=== PATIENT | female | born 1950 | race Caucasian/White ===

== ENCOUNTER 2023-08-22 16:56 | Outpatient (BNV) | payer MEDICARE, SELFPAY | END 2023-09-05 04:17 | PROVIDERS: Admitting Provider Psychiatry & Neurology Psychiatry; PCP Internal Medicine; Visit Provider Internal Medicine | DX: R94.31 Abnormal electrocardiogram [ECG] [EKG] (principal) | CPT/HCPCS: 93010 ==

== ENCOUNTER 2023-08-22 16:56 | Inpatient (IN) | payer MEDICARE, SELFPAY ==
--- NOTE | ~2023-08-22 | CT_ITS ---
EXAMINATION: CT HEAD WITHOUT CONTRAST CT CERVICAL SPINE WITHOUT CONTRAST CLINICAL INFORMATION: Trauma. Pain. COMPARISON: None available. TECHNIQUE: Contiguous axial imaging was performed through the head and cervical spine without intravenous administration of contrast. This CT examination was performed using dose optimization techniques as appropriate, variously including the following: *Automated exposure control *Adjustment of mA and/or kV according to patient size (this includes techniques or standardized protocols for targeted exams where dose is matched to indication/reason for exam; i.e. extremities or head) *Use of iterative reconstruction technique DLP: 1094 mGy-cm FINDINGS: There is cerebral volume loss with prominence of the lateral and the third ventricles. The cortical sulci are widened appropriately. The fourth ventricle and basal cisterns are normally outlined. There is mild bilateral periventricular and central white matter diminished attenuation. There is no acute territorial defect, hemorrhage or midline shift. The extra-axial spaces are unremarkable. Calvarium: Intact. Maxillofacial sinuses and mastoids: Clear as visualized. Cervical spine: Motion slightly limits evaluation. The alignment is within normal limits. There is diffuse ggjn-ea-hjpoxndg cervical disc degenerative change with loss of disc space, endplate change and posterior osteophytes associated with diffuse facet osteoarthritic hypertrophic change with multilevel mild spinal canal and multilevel mild neuroforaminal narrowing. There is no fracture. The soft tissues are unremarkable. The visualized upper lung viveros are clear. CT/CT head/brain wo IV con IMPRESSION: 1. No acute intracranial process seen. 2. Mild cerebral volume loss with chronic small vessel ischemic changes. 3. There is no acute cervical spine fracture or malalignment. There are degenerative disc changes and facet joint arthropathy throughout the cervical spine with multilevel mild spinal canal and neuroforaminal narrowing.
--- NOTE | ~2023-08-22 | CT_ITS ---
EXAMINATION: CT HEAD WITHOUT CONTRAST CT CERVICAL SPINE WITHOUT CONTRAST CLINICAL INFORMATION: Trauma. Pain. COMPARISON: None available. TECHNIQUE: Contiguous axial imaging was performed through the head and cervical spine without intravenous administration of contrast. This CT examination was performed using dose optimization techniques as appropriate, variously including the following: *Automated exposure control *Adjustment of mA and/or kV according to patient size (this includes techniques or standardized protocols for targeted exams where dose is matched to indication/reason for exam; i.e. extremities or head) *Use of iterative reconstruction technique DLP: 1094 mGy-cm FINDINGS: There is cerebral volume loss with prominence of the lateral and the third ventricles. The cortical sulci are widened appropriately. The fourth ventricle and basal cisterns are normally outlined. There is mild bilateral periventricular and central white matter diminished attenuation. There is no acute territorial defect, hemorrhage or midline shift. The extra-axial spaces are unremarkable. Calvarium: Intact. Maxillofacial sinuses and mastoids: Clear as visualized. Cervical spine: Motion slightly limits evaluation. The alignment is within normal limits. There is diffuse mtlo-fj-vbrskega cervical disc degenerative change with loss of disc space, endplate change and posterior osteophytes associated with diffuse facet osteoarthritic hypertrophic change with multilevel mild spinal canal and multilevel mild neuroforaminal narrowing. There is no fracture. The soft tissues are unremarkable. The visualized upper lung viveros are clear. CT/CT cervical spine wo IV con IMPRESSION: 1. No acute intracranial process seen. 2. Mild cerebral volume loss with chronic small vessel ischemic changes. 3. There is no acute cervical spine fracture or malalignment. There are degenerative disc changes and facet joint arthropathy throughout the cervical spine with multilevel mild spinal canal and neuroforaminal narrowing.
--- NOTE | ~2023-08-22 | XR_ITS ---
EXAMINATION: XR BILATERAL HIPS WITH AP PELVIS CLINICAL INFORMATION: Fall. Pain. COMPARISON: None available. TECHNIQUE: AP view of the pelvis and single views of each hip were obtained. FINDINGS: The bony structures are osteopenic. There is mild bilateral hip degenerative change with minimal loss of joint space and mild osteophyte formation more pronounced on the right. There is no fracture. There is mild lower lumbar disc degenerative change. The soft tissues are unremarkable. XR/XR hip BI w PEL1V IMPRESSION: Mild degenerative changes. No fracture or dislocation.
[2023-08-22 17:20] VITALS: BMI 27.2
[2023-08-22 17:21] VITALS: BP 156/68; PULSE 65; RESP 16; TEMP 36.1; O2SAT 96
--- NOTE | 2023-08-22 19:22 | PC.ADMIT ---
Madhavi was admitted to on 08/22/23 at 17:15 on a CV for the treatment of MDD. The precipitant of admission includes suicidal ideation related to the recent suicide of her only grandchild. She is alert and oriented to person, place, time, and situation. Skin check was completed by staff. She is utilizing a walker for ambulation. She was placed on 5 minute checks for safety.
[2023-08-22] MEDS: Acetaminophen 325 MG TABLET 650 MG PO (21:22)
[2023-08-22] MEDS: traZODone HCL 50 MG TABLET PO (23:55)
[2023-08-23] MEDS: traZODone HCL 50 MG TABLET PO ×2 (01:27→20:22)
[2023-08-23 08:41] VITALS: BP 107/53; PULSE 75; RESP 17; TEMP 36.5; O2SAT 99
[2023-08-23] MEDS: Atorvastatin Calcium 40 MG TABLET PO (08:45)
[2023-08-23] MEDS: Furosemide 40 MG TABLET PO (08:45)
[2023-08-23 08:59] LABS: Estimated Average Glucose 105 mg/dL; Hemoglobin A1c % 5.3 % (<6.0)
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
[2023-08-23 09:11] LABS: Alanine Aminotransferase 9 U/L (0-31); Alkaline Phosphatase 99 U/L (39-117); Anion Gap 14 (12-20); Aspartate Amino Transferase 14 U/L (5-31); Bilirubin Total 0.7 mg/dL (0.0-1.0); Blood Urea Nitrogen 22 mg/dL (9-16); Carbon Dioxide 28 mmol/L (22-29); Chloride 103 mmol/L (96-108); Cholesterol 190 mg/dL (<200); Creatinine Clr Calc Pharmacy 69.1; Estimated Glomerular Filt Rate > 60; Glucose Fasting 101 mg/dL (60-99); HDL Cholesterol 60 mg/dL (>40); LDL Cholesterol Calculated 109 mg/dL (<100); Potassium 4.9 mmol/L (3.3-5.1); Sodium 140 mmol/L (135-145); Total Protein 7.5 g/dL (6.5-8.0); Triglycerides 108 mg/dL (<150)
[2023-08-23 09:44] LABS: Folate 6.4 ng/mL (> or = 4.0); Vitamin B12 295 pg/mL (200-900)
--- NOTE | 2023-08-23 11:26 | P.CONHOSP_ITS ---
History of Present Illness Data of Consult Service Date: 08/23/23 Primary Care Provider: Niurka Villagran MD HPI Reason for consult: Admission H&P Pt is a 73-year-old female with a PMH significant for?HLD, chronic lower edema, and depression who is admitted [facility] psych unit for increasing depression with vague SI. Patient has apparently been particularly depressed after her only grandchild committed suicide the day before [place] last year. Medical consult for admission H&P. Patient seems distracted at time of interview. States she is unable to recall any any significant PMH other than taking ?something? for swelling in her lower legs and that she has issues with cataracts that cause her to be sensitive to bright lights. Also mentioned that she has chronically been unsteady on feet for the past few years and apparently has a history of falls at home. Denies any acute medical complaints. Patient does want to talk about the stressors in her life, including the suicide of her granddaughter, as well as other family members. Labs reviewed, grossly unremarkable. Review of Systems 2 Review of Systems: Chronic unsteadiness on feet History of falls Photophobia secondary to cataracts Chronic lower leg edema [facility] Medical History (Updated 08/24/23 @ 16:40 by JESÚS Hawthorne) HLD (hyperlipidemia) Cataracts, bilateral Social History Household Members: Other Household Members Other:: son ruthy Housing: House Do you presently have visiting nurse or other home services: Yes Patient Tobacco Use Status: Never used Tobacco Use of substances other than those prescribed or required for medical reasons: No Currently Displaying Signs/Symptoms of Drug Intoxication Withdrawal: No Have you been hit, kicked, punched, or otherwise hurt by someone within the past year? If so, by whom?: No Do you feel safe in your current relationship?: No Spiritual Healthcare Practices: unknown [facility] Healthcare Practices: unknown Advance Directives: No Advance Directives Information Provided: No Do you have thoughts of harming others: None Do you have a plan to hurt others: No Plan Recently lost weight without trying: No Nutrition Risks: No Nutritional Risk Patient : No : No Poor oral hygiene: No service: No Sexual orientation: Straight/Heterosexual Meds Allergies Allergy/AdvReac Type Severity Reaction Status Date / Time No Known Allergies Allergy Verified 08/22/23 17:55 Active Medications: Current Medications Acetaminophen (Acetaminophen 325 Mg Tablet) 650 mg PO Q6H PRN PRN Reason: Headache/Pain Mild Scale (1-3) Last Admin: 08/22/23 21:22 Dose: 650 mg Al Hydroxide/Mg Hydroxide (Magnesium Hydrox/Alum Hydrox 30 Ml Oral.Susp) 30 ml PO Q6H PRN PRN Reason: Heartburn/Nausea Atorvastatin Calcium (Atorvastatin Calcium 40 Mg Tablet) 40 mg PO DAILY [facility] Last Admin: 08/23/23 08:45 Dose: 40 mg Furosemide (Furosemide 40 Mg Tablet) 40 mg PO DAILY RAF; Protocol Last Admin: 08/23/23 08:45 Dose: 40 mg Magnesium Hydroxide (Milk Of Magnesia 30 Ml Oral.Susp) 30 ml PO DAILY PRN PRN Reason: Constipation Trazodone HCl (Trazodone Hcl 50 Mg Tablet) 50 mg PO BEDTIME PRN PRN Reason: Insomnia Last Admin: 08/23/23 01:27 Dose: 50 mg Home Medications Medication Instructions Recorded Confirmed Last Taken Type atorvastatin 40 mg tablet 40 mg PO DAILY 08/22/23 08/22/23 Unknown History divalproex 250 mg tablet,extended 750 mg PO BEDTIME 08/22/23 08/22/23 Unknown History release 24 hr furosemide 40 mg tablet (Lasix) 40 mg PO DAILY 08/22/23 08/22/23 Unknown History Physical Exam 2 Vital Signs and Narrative: Vital Signs: Last Vital Signs Temp 97.7 F 08/23/23 08:41 Pulse 75 08/23/23 08:41 Resp 17 08/23/23 08:41 BP 107/53 L 08/23/23 08:41 Pulse Ox 99 08/23/23 08:41 O2 Del Method Room Air 08/23/23 08:41 BMI result Body Mass Index 27.2 General: AOx3, no acute distress Resp: CTA bilaterally CVS: S1, S2, RRR, 2/6 murmur heard at right sternal border GI: +BS, NT, no distention Skin: Warm, dry Neuro: Cranial nerves II-XII grossly intact bilaterally. Motor grossly intact bilaterally Extremities: Non pitting bilateral lower leg edema Results Labs 08/23/23 08:03 Labs: Laboratory Results - last 24 hr 08/23/23 08:03 Anion Gap 14 Estim Creat Clear Calc 69.1 Estimated GFR > 60 Fasting Glucose 101 H Estimat Average Glucose 105 Hemoglobin A1c % 5.3 Calcium 10.0 Total Bilirubin 0.7 AST 14 ALT 9 Alkaline Phosphatase 99 Total Protein 7.5 Albumin 4.0 Triglycerides 108 Cholesterol 190 LDL Cholesterol, Calc 109 H HDL Cholesterol 60 Vitamin B12 295 Folate 6.4 TSH 0.80 Assessment and Plan (1) Medical clearance for psychiatric admission: Status: Acute Plan Pt is a 73-year-old female with a PMH significant for?HLD, chronic lower edema, and depression who is admitted [facility] psych unit for increasing depression with vague SI. Patient has apparently been particularly depressed after her only grandchild committed suicide the day before [place] last year. Medical consult for admission H&P. Mood disorder Plan as per psychiatry HLD Continue statin Chronic lower leg edema Continue home lasix Compression stockings as tolerated Elevate feet/legs while in bed, encourage ambulation as tolerated Otherwise pt has no acute medical complaints. Thank you for allowing us to participate in the care of this patient. Signing off at this time. Please re- consult if any acute complaints or issues arise.
[2023-08-23 18:00] VITALS: BP 121/58; PULSE 75; RESP 18; TEMP 36.6; O2SAT 100
[2023-08-23] MEDS: Divalproex Sodium Sprinkles 125 MG CAP.DR.SPR 750 MG PO (20:21)
[2023-08-23] MEDS: Mirtazapine 7.5 MG TABLET PO (20:22)
[2023-08-23] MEDS: Acetaminophen 325 MG TABLET 650 MG PO (20:27)
[2023-08-24 06:00] VITALS: BP 139/65; PULSE 75; RESP 18; TEMP 36.2; O2SAT 98
[2023-08-24] MEDS: Atorvastatin Calcium 40 MG TABLET PO (08:45)
[2023-08-24] MEDS: Furosemide 40 MG TABLET PO (08:45)
--- NOTE | 2023-08-24 17:49 | HO.PSYCHPN ---
Subjective Subjective Date of Service: 08/24/23 Reason For Visit: MDD Interim History: Patient reports I am mentally fine today. Reports feeling well. Denies pain. Reports mood is good. No SI. Visible on unit and ambulates with walker per staff. Review of Systems Review of Systems Chronic unsteadiness on feet History of falls Photophobia secondary to cataracts Chronic lower leg edema Yes all other systems are reviewed and are negative Mental Status Exam Mental Status Exam Patient Appearance: Appropriate (In hospital attire) Patient Orientation: Person and Situation Level of Consciousness: Awake and Appropriate Patient Behavior: Guarded and Passive Mood Description: Withdrawn Affect Description: Constricted Patient Cognition Impaired: Yes Ability to Follow Directions: Good Speech Pattern: Clear Diagnostics Vital Signs (24Hr): Vital Signs - 24 hr 08/23/23 18:00 08/24/23 06:00 Temperature 97.9 F 97.2 F Pulse Rate 75 75 Respiratory Rate 18 18 Blood Pressure 121/58 L 139/65 Pulse Oximetry 100 98 Oxygen Delivery Method Room Air Room Air BMI result Body Mass Index 27.2 Labs 08/23/23 08:03 Labs: Laboratory Results - last 48 hr 08/23/23 08:03 Sodium 140 Potassium 4.9 Chloride 103 Carbon Dioxide 28 Anion Gap 14 BUN 22 H Creatinine 0.76 Estim Creat Clear Calc 69.1 Estimated GFR > 60 Fasting Glucose 101 H Estimat Average Glucose 105 Hemoglobin A1c % 5.3 Calcium 10.0 Total Bilirubin 0.7 AST 14 ALT 9 Alkaline Phosphatase 99 Total Protein 7.5 Albumin 4.0 Triglycerides 108 Cholesterol 190 LDL Cholesterol, Calc 109 H HDL Cholesterol 60 Vitamin B12 295 Folate 6.4 TSH 0.80 Medications Medications Current Medications Acetaminophen (Acetaminophen 325 Mg Tablet) 650 mg PO Q6H PRN PRN Reason: Headache/Pain Mild Scale (1-3) Last Admin: 08/23/23 20:27 Dose: 650 mg Al Hydroxide/Mg Hydroxide (Magnesium Hydrox/Alum Hydrox 30 Ml Oral.Susp) 30 ml PO Q6H PRN PRN Reason: Heartburn/Nausea Atorvastatin Calcium (Atorvastatin Calcium 40 Mg Tablet) 40 mg PO DAILY [facility] Last Admin: 08/24/23 08:45 Dose: 40 mg Divalproex Sodium (Divalproex Sodium Sprinkles 125 Mg ) 750 mg PO BEDTIME [facility] Last Admin: 08/23/23 20:21 Dose: 750 mg Furosemide (Furosemide 40 Mg Tablet) 40 mg PO DAILY RAF; Protocol Last Admin: 08/24/23 08:45 Dose: 40 mg Magnesium Hydroxide (Milk Of Magnesia 30 Ml Oral.Susp) 30 ml PO DAILY PRN PRN Reason: Constipation Mirtazapine (Mirtazapine 7.5 Mg Tablet) 7.5 mg PO BEDTIME RAF Last Admin: 08/23/23 20:22 Dose: 7.5 mg Polyethyl Glycol/Propylene Glycol (Propylene Glycol/Peg 400 Gel Eye Drops 10ml) 2 drop EYE-BOTH ONCE PRN PRN Reason: Dry Eyes Trazodone HCl (Trazodone Hcl 50 Mg Tablet) 50 mg PO BEDTIME PRN PRN Reason: Insomnia Last Admin: 08/23/23 20:22 Dose: 50 mg Allergies Allergies Allergy/AdvReac Type Severity Reaction Status Date / Time No Known Allergies Allergy Verified 08/22/23 17:55 Assessment & Plan Assessment & Plan (1) Mood disorder: Status: Acute Code(s): F39 - Unspecified mood [affective] disorder (2) Depression: Status: Acute Code(s): F32.A - Depression, unspecified Plan (1) Mood disorder: Status: Acute Code(s): F39 - Unspecified mood [affective] disorder Plan The patient is a 73-year-old female with a past history of mood disorder on Depakote, with several members who has completed suicide. The patient had been depressed after she learned that her granddaughter herself after [place]. Since then she developed depressive symptoms with suicidal ideation, no evidence of manic symptoms at this moment. Plan 1. Gather collateral information. 2. Continue with Depakote we will change to Depakote Sprinkles because the patient has problems swallowing it. 3. Regular blood work and referral to the hospitalist. 4. Reassessment results. 5. 15 minute checks since the patient had been able to contract for safety in the facility. 6. Depakote level for Saturday. 7. Start Remeron 7.5 mg p.o. q.h.s. to target anxiety depression and insomnia. 08/24: Continue current management and treatment plan. Reason for continued inpatient stay Substantial Risk for: harm to self, inability to function and rapid decompensation Time Spent With Patient Time: Total time managing care of this patient today ____ minutes.
[2023-08-24 18:00] VITALS: BP 141/67; PULSE 92; RESP 18; TEMP 36.6; O2SAT 98
[2023-08-24] MEDS: Mirtazapine 7.5 MG TABLET PO (19:57)
[2023-08-24] MEDS: traZODone HCL 50 MG TABLET PO (19:58)
[2023-08-24] MEDS: Divalproex Sodium Sprinkles 125 MG CAP.DR.SPR 750 MG PO (19:58)
[2023-08-24] MEDS: Acetaminophen 325 MG TABLET 650 MG PO (20:07)
[2023-08-25 06:00] VITALS: BP 144/70; PULSE 72; RESP 18; TEMP 35.7; O2SAT 96
[2023-08-25] MEDS: Atorvastatin Calcium 40 MG TABLET PO (08:55)
[2023-08-25] MEDS: Furosemide 40 MG TABLET PO (08:55)
[2023-08-25] MEDS: Acetaminophen 325 MG TABLET 650 MG PO ×2 (11:31→20:35)
--- NOTE | 2023-08-25 16:54 | P.PNPSI_ITS ---
Subjective Subjective Date of Service: 08/25/23 Reason For Visit: MDD Interim History: Patient reports I am mentally fine today. Says her eyes are dry and she uses Systane eye drops and an oral supplement for eye health. Otherwise reports feeling well. Denies pain. Reports mood is good. No SI. Visible on unit and ambulates with walker per staff. Review of Systems Review of Systems Chronic unsteadiness on feet History of falls Photophobia secondary to cataracts Chronic lower leg edema Yes all other systems are reviewed and are negative Mental Status Exam Mental Status Exam Patient Appearance: Appropriate (In hospital attire) Patient Orientation: Person and Situation Level of Consciousness: Awake and Appropriate Patient Behavior: Guarded and Passive Mood Description: Withdrawn Affect Description: Constricted Patient Cognition Impaired: Yes Ability to Follow Directions: Good Speech Pattern: Clear Diagnostics Vital Signs (24Hr): Vital Signs - 24 hr 08/24/23 18:00 08/25/23 06:00 Temperature 97.8 F 96.2 F L Pulse Rate 92 72 Respiratory Rate 18 18 Blood Pressure 141/67 H 144/70 H Pulse Oximetry 98 96 Oxygen Delivery Method Room Air Room Air BMI result Body Mass Index 27.2 Labs 08/23/23 08:03 Medications Medications Current Medications Acetaminophen (Acetaminophen 325 Mg Tablet) 650 mg PO Q6H PRN PRN Reason: Headache/Pain Mild Scale (1-3) Last Admin: 08/25/23 11:31 Dose: 650 mg Al Hydroxide/Mg Hydroxide (Magnesium Hydrox/Alum Hydrox 30 Ml Oral.Susp) 30 ml PO Q6H PRN PRN Reason: Heartburn/Nausea Atorvastatin Calcium (Atorvastatin Calcium 40 Mg Tablet) 40 mg PO DAILY [facility] Last Admin: 08/25/23 08:55 Dose: 40 mg Divalproex Sodium (Divalproex Sodium Sprinkles 125 Mg ) 750 mg PO BEDTIME [facility] Last Admin: 08/24/23 19:58 Dose: 750 mg Furosemide (Furosemide 40 Mg Tablet) 40 mg PO DAILY [facility]; Protocol Last Admin: 08/25/23 08:55 Dose: 40 mg Magnesium Hydroxide (Milk Of Magnesia 30 Ml Oral.Susp) 30 ml PO DAILY PRN PRN Reason: Constipation Mirtazapine (Mirtazapine 7.5 Mg Tablet) 7.5 mg PO BEDTIME [facility] Last Admin: 08/24/23 19:57 Dose: 7.5 mg Polyethyl Glycol/Propylene Glycol (Propylene Glycol/Peg 400 Gel Eye Drops 10ml) 2 drop EYE-BOTH BID PRN PRN Reason: Dry Eyes Trazodone HCl (Trazodone Hcl 50 Mg Tablet) 50 mg PO BEDTIME PRN PRN Reason: Insomnia Last Admin: 08/24/23 19:58 Dose: 50 mg Allergies Allergies Allergy/AdvReac Type Severity Reaction Status Date / Time No Known Allergies Allergy Verified 08/22/23 17:55 Assessment & Plan Assessment & Plan (1) Mood disorder: Status: Acute Code(s): F39 - Unspecified mood [affective] disorder (2) Depression: Status: Acute Code(s): F32.A - Depression, unspecified Plan (1) Mood disorder: Status: Acute Code(s): F39 - Unspecified mood [affective] disorder Plan The patient is a 73-year-old female with a past history of mood disorder on Depakote, with several members who has completed suicide. The patient had been depressed after she learned that her granddaughter herself after [place]. Since then she developed depressive symptoms with suicidal ideation, no evidence of manic symptoms at this moment. Plan 1. Gather collateral information. 2. Continue with Depakote we will change to Depakote Sprinkles because the patient has problems swallowing it. 3. Regular blood work and referral to the hospitalist. 4. Reassessment results. 5. 15 minute checks since the patient had been able to contract for safety in the facility. 6. Depakote level for Saturday. 7. Start Remeron 7.5 mg p.o. q.h.s. to target anxiety depression and insomnia. 08/24: Continue current management and treatment plan. 08/25: Continue current management and treatment plan. Reason for continued inpatient stay Substantial Risk for: inability to function and rapid decompensation Time Spent With Patient Time: Total time managing care of this patient today ____ minutes.
[2023-08-25 18:00] VITALS: BP 115/52; PULSE 81; RESP 18; TEMP 36.9; O2SAT 94
[2023-08-25] MEDS: Mirtazapine 7.5 MG TABLET PO (20:34)
[2023-08-25] MEDS: Divalproex Sodium Sprinkles 125 MG CAP.DR.SPR 750 MG PO (20:34)
[2023-08-25] MEDS: traZODone HCL 50 MG TABLET PO ×2 (20:35→21:42)
[2023-08-26 06:00] VITALS: BP 123/51; PULSE 81; RESP 18; TEMP 2.9; TEMP 37.3; O2SAT 96
[2023-08-26] MEDS: Furosemide 40 MG TABLET PO (08:21)
[2023-08-26] MEDS: Atorvastatin Calcium 40 MG TABLET PO (08:21)
[2023-08-26 08:24] LABS: Valproate 40.9 mcg/mL (50.0-100.0)
--- NOTE | 2023-08-26 14:21 | HO.PSYCHPN ---
Subjective Subjective Date of Service: 08/26/23 Reason For Visit: MDD Subjective Notes: Conditional Voluntary Interim History: The nursing staff reported the patient complained of knee pain 03/07 with no relief with Tylenol. She has been eating well and sleeping well 7 hours. Her Depakote level of today was 40.9. On interview the patient denies active suicidal ideation but still she looks dysphoric. We discussed her Depakote level and she agreed to increased up to a 1000 mg p.o. q.h.s. and we will recheck her levels on August 30. Mental Status Exam Mental Status Exam Patient Appearance: Appropriate Patient Orientation: Person and Situation Level of Consciousness: Awake and Appropriate Patient Behavior: Guarded and Passive Mood Description: Withdrawn Affect Description: Constricted Patient Cognition Impaired: Yes Ability to Follow Directions: Good Speech Pattern: Clear Hallucinations: None Delusions: Ideas of Reference Thought Process: Distracted and Slowed Thinking Thought Content: positive for [place] and positive for Poverty of Content Judgement: Fair Diagnostics Vital Signs (24Hr): Vital Signs - 24 hr 08/25/23 18:00 08/26/23 06:00 Temperature 98.4 F 37.3 F L Pulse Rate 81 81 Respiratory Rate 18 18 Blood Pressure 115/52 L 123/51 L Pulse Oximetry 94 96 Oxygen Delivery Method Room Air Room Air BMI result Body Mass Index 27.2 Labs 08/23/23 08:03 Labs: Laboratory Results - last 48 hr 08/26/23 07:58 Valproic Acid 40.9 L Medications Medications Current Medications Acetaminophen (Acetaminophen 325 Mg Tablet) 650 mg PO Q6H PRN PRN Reason: Headache/Pain Mild Scale (1-3) Last Admin: 08/25/23 20:35 Dose: 650 mg Al Hydroxide/Mg Hydroxide (Magnesium Hydrox/Alum Hydrox 30 Ml Oral.Susp) 30 ml PO Q6H PRN PRN Reason: Heartburn/Nausea Atorvastatin Calcium (Atorvastatin Calcium 40 Mg Tablet) 40 mg PO DAILY [facility] Last Admin: 08/26/23 08:21 Dose: 40 mg Divalproex Sodium (Divalproex Sodium Sprinkles 125 Mg Cap.DrStanSpr) 1,000 mg PO BEDTIME [facility] Furosemide (Furosemide 40 Mg Tablet) 40 mg PO DAILY [facility]; Protocol Last Admin: 08/26/23 08:21 Dose: 40 mg Magnesium Hydroxide (Milk Of Magnesia 30 Ml Oral.Susp) 30 ml PO DAILY PRN PRN Reason: Constipation Mirtazapine (Mirtazapine 7.5 Mg Tablet) 7.5 mg PO BEDTIME [facility] Last Admin: 08/25/23 20:34 Dose: 7.5 mg Polyethyl Glycol/Propylene Glycol (Propylene Glycol/Peg 400 Gel Eye Drops 10ml) 2 drop EYE-BOTH BID PRN PRN Reason: Dry Eyes Trazodone HCl (Trazodone Hcl 50 Mg Tablet) 50 mg PO BEDTIME PRN PRN Reason: Insomnia Last Admin: 08/25/23 21:42 Dose: 50 mg Allergies Allergies Allergy/AdvReac Type Severity Reaction Status Date / Time No Known Allergies Allergy Verified 08/22/23 17:55 Assessment & Plan Assessment & Plan (1) Mood disorder: Status: Acute Code(s): F39 - Unspecified mood [affective] disorder (2) Depression: Status: Acute Code(s): F32.A - Depression, unspecified Plan (1) Mood disorder: Status: Acute Code(s): F39 - Unspecified mood [affective] disorder Plan The patient is a 73-year-old female with a past history of mood disorder on Depakote, with several members who has completed suicide. The patient had been depressed after she learned that her granddaughter herself after [place]. Since then she developed depressive symptoms with suicidal ideation, no evidence of manic symptoms at this moment. Plan 1. Gather collateral information. 2. Continue with Depakote we will change to Depakote Sprinkles because the patient has problems swallowing it. 3. Regular blood work and referral to the hospitalist. 4. Reassessment results. 5. 15 minute checks since the patient had been able to contract for safety in the facility. 6. Depakote level for Saturday. Her level was 40.9. We are increasing Depakote up to 1000 mg at night. 7. Start Remeron 7.5 mg p.o. q.h.s. to target anxiety depression and insomnia on admission.. Reason for continued inpatient stay Substantial Risk for: inability to function, rapid decompensation and med/psych decompensation Time Spent With Patient Time: Total time managing care of this patient today __20__ minutes.
[2023-08-26 18:00] VITALS: BP 154/67; PULSE 81; RESP 18; TEMP 36.4; O2SAT 95
[2023-08-26] MEDS: Divalproex Sodium Sprinkles 125 MG CAP.DR.SPR 1000 MG PO (21:02)
[2023-08-26] MEDS: Mirtazapine 7.5 MG TABLET PO (21:02)
[2023-08-26] MEDS: Acetaminophen 325 MG TABLET 650 MG PO (21:03)
[2023-08-26] MEDS: traZODone HCL 50 MG TABLET PO (21:03)
[2023-08-26] MEDS: Propylene Glycol/PEG 400 Gel Eye Drops 10ML 2 DROP EYE-BOTH (21:25)
[2023-08-26] MEDS: Magnesium Hydrox/Alum Hydrox 30 ML ORAL.SUSP PO (21:51)
[2023-08-27 06:00] VITALS: BP 152/70; PULSE 80; RESP 16; TEMP 36.7; O2SAT 98
[2023-08-27] MEDS: Acetaminophen 325 MG TABLET 650 MG PO ×3 (06:09→21:31)
[2023-08-27] MEDS: Furosemide 40 MG TABLET PO (12:03)
[2023-08-27] MEDS: Atorvastatin Calcium 40 MG TABLET PO (12:03)
--- NOTE | 2023-08-27 12:32 | HO.PSYCHPN ---
Subjective Subjective Date of Service: 08/27/23 Reason For Visit: MDD Subjective Notes: Conditional Voluntary Healthcare Proxy: Yes Interim History: The nursing staff reported the patient has been attention seeking, she slept 7 hours and she had been restless at times. She needed p.r.n. medications in the evening. On interview the patient looks confused, redirectable no over-sedation. Mental Status Exam Mental Status Exam Patient Appearance: Appropriate Patient Orientation: Person Level of Consciousness: Awake and Restless Patient Behavior: Guarded and Passive Mood Description: Withdrawn Affect Description: Constricted Patient Cognition Impaired: Yes Ability to Follow Directions: Fair Speech Pattern: Clear Hallucinations: None Delusions: Ideas of Reference Thought Process: Illogical and Distracted Thought Content: positive for [place] and positive for Poverty of Content Judgement: Poor Diagnostics Vital Signs (24Hr): Vital Signs - 24 hr 08/26/23 18:00 Temperature 97.5 F Pulse Rate 81 Respiratory Rate 18 Blood Pressure 154/67 H Pulse Oximetry 95 Oxygen Delivery Method Room Air BMI result Body Mass Index 27.2 Labs 08/23/23 08:03 Labs: Laboratory Results - last 48 hr 08/26/23 07:58 Valproic Acid 40.9 L Medications Medications Current Medications Acetaminophen (Acetaminophen 325 Mg Tablet) 650 mg PO Q6H PRN PRN Reason: Headache/Pain Mild Scale (1-3) Last Admin: 08/27/23 06:09 Dose: 650 mg Al Hydroxide/Mg Hydroxide (Magnesium Hydrox/Alum Hydrox 30 Ml Oral.Susp) 30 ml PO Q6H PRN PRN Reason: Heartburn/Nausea Last Admin: 08/26/23 21:51 Dose: 30 ml Atorvastatin Calcium (Atorvastatin Calcium 40 Mg Tablet) 40 mg PO DAILY [facility] Last Admin: 08/27/23 12:03 Dose: 40 mg Divalproex Sodium (Divalproex Sodium Sprinkles 125 Mg ) 1,000 mg PO BEDTIME [facility] Last Admin: 08/26/23 21:02 Dose: 1,000 mg Furosemide (Furosemide 40 Mg Tablet) 40 mg PO DAILY [facility]; Protocol Last Admin: 08/27/23 12:03 Dose: 40 mg Magnesium Hydroxide (Milk Of Magnesia 30 Ml Oral.Susp) 30 ml PO DAILY PRN PRN Reason: Constipation Mirtazapine (Mirtazapine 7.5 Mg Tablet) 7.5 mg PO BEDTIME [facility] Last Admin: 08/26/23 21:02 Dose: 7.5 mg Polyethyl Glycol/Propylene Glycol (Propylene Glycol/Peg 400 Gel Eye Drops 10ml) 2 drop EYE-BOTH BID PRN PRN Reason: Dry Eyes Last Admin: 08/26/23 21:25 Dose: 2 drop Trazodone HCl (Trazodone Hcl 50 Mg Tablet) 50 mg PO BEDTIME PRN PRN Reason: Insomnia Last Admin: 08/26/23 21:03 Dose: 50 mg Allergies Allergies Allergy/AdvReac Type Severity Reaction Status Date / Time No Known Allergies Allergy Verified 08/22/23 17:55 Assessment & Plan Assessment & Plan (1) Mood disorder: Status: Acute Code(s): F39 - Unspecified mood [affective] disorder (2) Depression: Status: Acute Code(s): F32.A - Depression, unspecified Plan (1) Mood disorder: Status: Acute Code(s): F39 - Unspecified mood [affective] disorder Plan The patient is a 73-year-old female with a past history of mood disorder on Depakote, with several members who has completed suicide. The patient had been depressed after she learned that her granddaughter herself after [place]. Since then she developed depressive symptoms with suicidal ideation, no evidence of manic symptoms at this moment. Plan 1. Gather collateral information. 2. Continue with Depakote we will change to Depakote Sprinkles because the patient has problems swallowing it. 3. Regular blood work and referral to the hospitalist. 4. Reassessment results. 5. 15 minute checks since the patient had been able to contract for safety in the facility. 6. Depakote level for Saturday. Her level was 40.9. We are increasing Depakote up to 1000 mg at night. 7. Start Remeron 7.5 mg p.o. q.h.s. to target anxiety depression and insomnia on admission.. Reason for continued inpatient stay Substantial Risk for: inability to function, rapid decompensation and med/psych decompensation Time Spent With Patient Time: Total time managing care of this patient today __20__ minutes.
[2023-08-27 20:10] VITALS: BP 125/59; PULSE 84; RESP 16; TEMP 36.2; O2SAT 97
[2023-08-27] MEDS: Divalproex Sodium Sprinkles 125 MG CAP.DR.SPR 1000 MG PO (20:58)
[2023-08-27] MEDS: traZODone HCL 50 MG TABLET PO (20:58)
[2023-08-27] MEDS: Mirtazapine 7.5 MG TABLET PO (20:58)
[2023-08-28 06:00] VITALS: BP 130/61; PULSE 87; RESP 16; TEMP 37; O2SAT 96
[2023-08-28] MEDS: Furosemide 40 MG TABLET PO (09:55)
[2023-08-28] MEDS: Atorvastatin Calcium 40 MG TABLET PO (09:55)
--- NOTE | 2023-08-28 13:08 | P.PNPSI_ITS ---
Subjective Subjective Date of Service: 08/28/23 Reason For Visit: MDD Subjective Notes: Conditional Voluntary Interim History: The nursing staff reported the patient slept 8 hours, she took her medications and she reported that she was feeling depressed since her granddaughter committed suicide. She looks a little attention seeking but easily redirectable. The psychotherapist social worker reported that we could not contact her family yet. On interview the patient denies new symptoms looks internally preoccupied at times. Mental Status Exam Mental Status Exam Patient Appearance: Appropriate Patient Orientation: Person Level of Consciousness: Awake Patient Behavior: Guarded Mood Description: Withdrawn Affect Description: Constricted Patient Cognition Impaired: Yes Ability to Follow Directions: Good Speech Pattern: Clear Hallucinations: None Delusions: Ideas of Reference Thought Process: Distracted and Slowed Thinking Thought Content: positive for [place] and positive for Poverty of Content Judgement: Fair Diagnostics Vital Signs (24Hr): Vital Signs - 24 hr 08/27/23 20:10 08/28/23 06:00 Temperature 97.2 F 98.6 F Pulse Rate 84 87 Respiratory Rate 16 16 Blood Pressure 125/59 L 130/61 Pulse Oximetry 97 96 Oxygen Delivery Method Room Air Room Air BMI result Body Mass Index 27.2 Labs 08/23/23 08:03 Medications Medications Current Medications Acetaminophen (Acetaminophen 325 Mg Tablet) 650 mg PO Q6H PRN PRN Reason: Headache/Pain Mild Scale (1-3) Last Admin: 08/27/23 21:31 Dose: 650 mg Al Hydroxide/Mg Hydroxide (Magnesium Hydrox/Alum Hydrox 30 Ml Oral.Susp) 30 ml PO Q6H PRN PRN Reason: Heartburn/Nausea Last Admin: 08/26/23 21:51 Dose: 30 ml Atorvastatin Calcium (Atorvastatin Calcium 40 Mg Tablet) 40 mg PO DAILY [facility] Last Admin: 08/28/23 09:55 Dose: 40 mg Divalproex Sodium (Divalproex Sodium Sprinkles 125 Mg ) 1,000 mg PO BEDTIME [facility] Last Admin: 08/27/23 20:58 Dose: 1,000 mg Furosemide (Furosemide 40 Mg Tablet) 40 mg PO DAILY [facility]; Protocol Last Admin: 08/28/23 09:55 Dose: 40 mg Magnesium Hydroxide (Milk Of Magnesia 30 Ml Oral.Susp) 30 ml PO DAILY PRN PRN Reason: Constipation Mirtazapine (Mirtazapine 7.5 Mg Tablet) 7.5 mg PO BEDTIME [facility] Last Admin: 08/27/23 20:58 Dose: 7.5 mg Polyethyl Glycol/Propylene Glycol (Propylene Glycol/Peg 400 Gel Eye Drops 10ml) 2 drop EYE-BOTH BID PRN PRN Reason: Dry Eyes Last Admin: 08/26/23 21:25 Dose: 2 drop Trazodone HCl (Trazodone Hcl 50 Mg Tablet) 50 mg PO BEDTIME PRN PRN Reason: Insomnia Last Admin: 08/27/23 20:58 Dose: 50 mg Allergies Allergies Allergy/AdvReac Type Severity Reaction Status Date / Time No Known Allergies Allergy Verified 08/22/23 17:55 Assessment & Plan Assessment & Plan (1) Mood disorder: Status: Acute Code(s): F39 - Unspecified mood [affective] disorder (2) Depression: Status: Acute Code(s): F32.A - Depression, unspecified Plan (1) Mood disorder: Status: Acute Code(s): F39 - Unspecified mood [affective] disorder Plan The patient is a 73-year-old female with a past history of mood disorder on Depakote, with several members who has completed suicide. The patient had been depressed after she learned that her granddaughter herself after [place]. Since then she developed depressive symptoms with suicidal ideation, no evidence of manic symptoms at this moment. Plan 1. Gather collateral information. 2. Continue with Depakote we will change to Depakote Sprinkles because the patient has problems swallowing it. 3. Regular blood work and referral to the hospitalist. 4. Reassessment results. 5. 15 minute checks since the patient had been able to contract for safety in the facility. 6. Depakote level for Saturday. Her level was 40.9. We are increasing Depakote up to 1000 mg at night. 7. Start Remeron 7.5 mg p.o. q.h.s. to target anxiety depression and insomnia on admission.. Reason for continued inpatient stay Substantial Risk for: inability to function, rapid decompensation and med/psych decompensation Time Spent With Patient Time: Total time managing care of this patient today __20__ minutes.
--- NOTE | 2023-08-28 16:15 | HO.WOUND ---
Wound Consult: Initial 73yr old? F admitted to [facility] on to the Behavioral Health Unit - See progress notes and H&P for detailed history.? Wound consult placed for Left Lower Leg skin tear.? Patient agreeable to assessment and photo documentation.? Pt reports she is unsure how the wound occurred. She does not recall hitting her ankle - however she reports she has had cellulitis in the past and has had wound development related to cellultits. The lower leg is noted for hemosiderin staining pt reports she frequently has lower leg swelling and has been instructed by her doctors to elevate her lower legs. The foam silicone adhesive does not appear to be irritating her skin - she does not appear to have fragile tissue prone to skin tears at the time of my assessment. Given she is on the behavioral health unit and gauze wrap use is not encouraged Foam dressing is appropriate. Wound bed cleansed with NS pat dry. Skin prep applied to periwound and small cut to size piece of xeroform applied as patient reports she did not want just the foam dressing in place - she preferred a ointment. We discussed xeroform and she was agreeable to its application. Topical recommendations below - no followup needed by inpt wound care nurse - should wound worsen please place new consult. Recommendations: 1. Left Medial Ankle - Cleanse with normal saline, pat dry. ?Apply double layer Xeroform secure with foam dressing. Change Daily.
[2023-08-28] MEDS: Acetaminophen 325 MG TABLET 650 MG PO ×2 (16:17→22:20)
[2023-08-28 18:00] VITALS: BP 127/66; PULSE 75; RESP 16; TEMP 36.9; O2SAT 97
[2023-08-28] MEDS: Divalproex Sodium Sprinkles 125 MG CAP.DR.SPR 1000 MG PO (19:45)
[2023-08-28] MEDS: Mirtazapine 7.5 MG TABLET PO (19:46)
[2023-08-28] MEDS: traZODone HCL 50 MG TABLET PO ×2 (19:57→22:23)
[2023-08-28] MEDS: Propylene Glycol/PEG 400 Gel Eye Drops 10ML 2 DROP EYE-BOTH (22:40)
[2023-08-29 07:00] VITALS: BMI 27.6
[2023-08-29 08:00] VITALS: BP 124/60; PULSE 78; RESP 18; TEMP 36.8; O2SAT 98
[2023-08-29] MEDS: Furosemide 40 MG TABLET PO (08:24)
[2023-08-29] MEDS: Atorvastatin Calcium 40 MG TABLET PO (08:24)
[2023-08-29] MEDS: Acetaminophen 325 MG TABLET 650 MG PO ×2 (08:29→20:26)
--- NOTE | 2023-08-29 16:04 | P.PNPSI_ITS ---
Subjective Subjective Date of Service: 08/29/23 Reason For Visit: MDD Subjective Notes: Conditional Voluntary Interim History: The nursing staff reported the patient was seen by the wound nurse and she has now dressings on her injuries. She has been cheerful and taken talkative with peers. The occupational therapist reported that she likes attention in groups. On interview the patient denies active suicidal ideation and she agreed to have Depakote level for Saturday. Mental Status Exam Mental Status Exam Patient Appearance: Appropriate Patient Orientation: Person and Situation Level of Consciousness: Awake and Appropriate Patient Behavior: Guarded and Passive Mood Description: Withdrawn Affect Description: Constricted Patient Cognition Impaired: Yes Ability to Follow Directions: Good Speech Pattern: Clear Hallucinations: None Delusions: Not Present Thought Process: Distracted and Slowed Thinking Thought Content: positive for [place] and positive for Poverty of Content Judgement: Poor Diagnostics Vital Signs (24Hr): Vital Signs - 24 hr 08/28/23 18:00 08/29/23 08:00 Temperature 98.4 F 98.2 F Pulse Rate 75 78 Respiratory Rate 16 18 Blood Pressure 127/66 124/60 Pulse Oximetry 97 98 Oxygen Delivery Method Room Air Room Air BMI result Body Mass Index 27.6 Labs 08/23/23 08:03 Medications Medications Current Medications Acetaminophen (Acetaminophen 325 Mg Tablet) 650 mg PO Q6H PRN PRN Reason: Headache/Pain Mild Scale (1-3) Last Admin: 08/29/23 08:29 Dose: 650 mg Al Hydroxide/Mg Hydroxide (Magnesium Hydrox/Alum Hydrox 30 Ml Oral.Susp) 30 ml PO Q6H PRN PRN Reason: Heartburn/Nausea Last Admin: 08/26/23 21:51 Dose: 30 ml Atorvastatin Calcium (Atorvastatin Calcium 40 Mg Tablet) 40 mg PO DAILY [facility] Last Admin: 08/29/23 08:24 Dose: 40 mg Divalproex Sodium (Divalproex Sodium Sprinkles 125 Mg ) 1,000 mg PO BEDTIME [facility] Last Admin: 08/28/23 19:45 Dose: 1,000 mg Furosemide (Furosemide 40 Mg Tablet) 40 mg PO DAILY [facility]; Protocol Last Admin: 08/29/23 08:24 Dose: 40 mg Magnesium Hydroxide (Milk Of Magnesia 30 Ml Oral.Susp) 30 ml PO DAILY PRN PRN Reason: Constipation Mirtazapine (Mirtazapine 7.5 Mg Tablet) 7.5 mg PO BEDTIME [facility] Last Admin: 08/28/23 19:46 Dose: 7.5 mg Polyethyl Glycol/Propylene Glycol (Propylene Glycol/Peg 400 Gel Eye Drops 10ml) 2 drop EYE-BOTH BID PRN PRN Reason: Dry Eyes Last Admin: 08/28/23 22:40 Dose: 2 drop Trazodone HCl (Trazodone Hcl 50 Mg Tablet) 50 mg PO BEDTIME PRN PRN Reason: Insomnia Last Admin: 08/28/23 22:23 Dose: 50 mg Allergies Allergies Allergy/AdvReac Type Severity Reaction Status Date / Time No Known Allergies Allergy Verified 08/22/23 17:55 Assessment & Plan Assessment & Plan (1) Mood disorder: Status: Acute Code(s): F39 - Unspecified mood [affective] disorder (2) Depression: Status: Acute Code(s): F32.A - Depression, unspecified Plan (1) Mood disorder: Status: Acute Code(s): F39 - Unspecified mood [affective] disorder Plan The patient is a 73-year-old female with a past history of mood disorder on Depakote, with several members who has completed suicide. The patient had been depressed after she learned that her granddaughter herself after [place]. Since then she developed depressive symptoms with suicidal ideation, no evidence of manic symptoms at this moment. Plan 1. Gather collateral information. 2. Continue with Depakote we will change to Depakote Sprinkles because the patient has problems swallowing it. 3. Regular blood work and referral to the hospitalist. 4. Reassessment results. 5. 15 minute checks since the patient had been able to contract for safety in the facility. 6. Depakote level for Saturday. Her level was 40.9. We are increasing Depakote up to 1000 mg at night. 7. Start Remeron 7.5 mg p.o. q.h.s. to target anxiety depression and insomnia on admission.. Reason for continued inpatient stay Substantial Risk for: inability to function, rapid decompensation and med/psych decompensation Time Spent With Patient Time: Total time managing care of this patient today _20__ minutes.
[2023-08-29 18:00] VITALS: BP 130/59; PULSE 77; RESP 18; TEMP 36.6; O2SAT 98
[2023-08-29] MEDS: traZODone HCL 50 MG TABLET PO (20:19)
[2023-08-29] MEDS: Divalproex Sodium Sprinkles 125 MG CAP.DR.SPR 1000 MG PO (20:20)
[2023-08-29] MEDS: Mirtazapine 7.5 MG TABLET PO (20:20)
[2023-08-30 08:00] VITALS: BP 134/60; PULSE 73; RESP 16; TEMP 36.6; O2SAT 97
[2023-08-30 08:11] LABS: Valproate 57.2 mcg/mL (50.0-100.0)
[2023-08-30] MEDS: Atorvastatin Calcium 40 MG TABLET PO (08:16)
[2023-08-30] MEDS: Furosemide 40 MG TABLET PO (08:16)
--- NOTE | 2023-08-30 11:18 | P.PNPSI_ITS ---
Subjective Subjective Reason For Visit: MDD Diagnostics Vital Signs (24Hr): Vital Signs - 24 hr 08/29/23 18:00 08/30/23 08:00 Temperature 98 F 98 F Pulse Rate 77 73 Respiratory Rate 18 16 Blood Pressure 130/59 L 134/60 Pulse Oximetry 98 97 Oxygen Delivery Method Room Air Room Air BMI result Body Mass Index 27.6 Labs 08/23/23 08:03 Labs: Laboratory Results - last 48 hr 08/30/23 07:45 Valproic Acid 57.2 Medications Medications Current Medications Acetaminophen (Acetaminophen 325 Mg Tablet) 650 mg PO Q6H PRN PRN Reason: Headache/Pain Mild Scale (1-3) Last Admin: 08/29/23 20:26 Dose: 650 mg Al Hydroxide/Mg Hydroxide (Magnesium Hydrox/Alum Hydrox 30 Ml Oral.Susp) 30 ml PO Q6H PRN PRN Reason: Heartburn/Nausea Last Admin: 08/26/23 21:51 Dose: 30 ml Atorvastatin Calcium (Atorvastatin Calcium 40 Mg Tablet) 40 mg PO DAILY [facility] Last Admin: 08/30/23 08:16 Dose: 40 mg Divalproex Sodium (Divalproex Sodium Sprinkles 125 Mg Cap.) 1,000 mg PO BEDTIME [facility] Last Admin: 08/29/23 20:20 Dose: 1,000 mg Furosemide (Furosemide 40 Mg Tablet) 40 mg PO DAILY [facility]; Protocol Last Admin: 08/30/23 08:16 Dose: 40 mg Magnesium Hydroxide (Milk Of Magnesia 30 Ml Oral.Susp) 30 ml PO DAILY PRN PRN Reason: Constipation Mirtazapine (Mirtazapine 7.5 Mg Tablet) 7.5 mg PO BEDTIME [facility] Last Admin: 08/29/23 20:20 Dose: 7.5 mg Polyethyl Glycol/Propylene Glycol (Propylene Glycol/Peg 400 Gel Eye Drops 10ml) 2 drop EYE-BOTH BID PRN PRN Reason: Dry Eyes Last Admin: 08/28/23 22:40 Dose: 2 drop Trazodone HCl (Trazodone Hcl 50 Mg Tablet) 50 mg PO BEDTIME PRN PRN Reason: Insomnia Last Admin: 08/29/23 20:19 Dose: 50 mg Allergies Allergies Allergy/AdvReac Type Severity Reaction Status Date / Time No Known Allergies Allergy Verified 08/22/23 17:55 Assessment & Plan Assessment & Plan (1) Mood disorder: Status: Acute Code(s): F39 - Unspecified mood [affective] disorder (2) Depression: Status: Acute Code(s): F32.A - Depression, unspecified Plan (1) Mood disorder: Status: Acute Code(s): F39 - Unspecified mood [affective] disorder Plan The patient is a 73-year-old female with a past history of mood disorder on Depakote, with several members who has completed suicide. The patient had been depressed after she learned that her granddaughter herself after [place]. Since then she developed depressive symptoms with suicidal ideation, no evidence of manic symptoms at this moment. Plan 1. Gather collateral information. 2. Continue with Depakote we will change to Depakote Sprinkles because the patient has problems swallowing it. 3. Regular blood work and referral to the hospitalist. 4. Reassessment results. 5. 15 minute checks since the patient had been able to contract for safety in the facility. 6. Depakote level for Saturday. Her level was 40.9. We are increasing Depakote up to 1000 mg at night. 7. Start Remeron 7.5 mg p.o. q.h.s. to target anxiety depression and insomnia on admission.. Time Spent With Patient Time: Total time managing care of this patient today ____ minutes.
[2023-08-30] MEDS: Acetaminophen 325 MG TABLET 650 MG PO ×2 (13:28→20:07)
--- NOTE | 2023-08-30 14:00 | P.PNPSI_ITS ---
Subjective Subjective Date of Service: 08/30/23 Reason For Visit: MDD Interim History: The nursing staff reported the patient was seen by the wound nurse and she has now dressings on her injuries. left ankle skin tear healing well. She has been cheerful and talkative with peers. The occupational therapist reported that she likes attention in groups. On interview the patient denies active suicidal ideation. She denies feeling depressed. Medication Compliance: Yes Side effects from medications: No Attending Groups: Yes Review of Systems Acute medical concerns: No Medical Review of Systems: unchanged Review of Systems Review of Systems Chronic unsteadiness on feet History of falls Photophobia secondary to cataracts Chronic lower leg edema Yes all other systems are reviewed and are negative Mental Status Exam Mental Status Exam Patient Appearance: Appropriate Patient Orientation: Person and Situation Level of Consciousness: Awake and Appropriate Patient Behavior: Appropriate, Guarded and Passive Mood Description: Withdrawn Affect Description: Constricted Patient Cognition Impaired: Yes Ability to Follow Directions: Good Speech Pattern: Clear Thought Process: Goal Oriented Thought Content: positive for Goal Oriented Judgement: Fair Diagnostics Vital Signs (24Hr): Vital Signs - 24 hr 08/29/23 18:00 08/30/23 08:00 Temperature 98 F 98 F Pulse Rate 77 73 Respiratory Rate 18 16 Blood Pressure 130/59 L 134/60 Pulse Oximetry 98 97 Oxygen Delivery Method Room Air Room Air BMI result Body Mass Index 27.6 Labs 08/23/23 08:03 Labs: Laboratory Results - last 48 hr 08/30/23 07:45 Valproic Acid 57.2 Medications Medications Current Medications Acetaminophen (Acetaminophen 325 Mg Tablet) 650 mg PO Q6H PRN PRN Reason: Headache/Pain Mild Scale (1-3) Last Admin: 08/30/23 13:28 Dose: 650 mg Al Hydroxide/Mg Hydroxide (Magnesium Hydrox/Alum Hydrox 30 Ml Oral.Susp) 30 ml PO Q6H PRN PRN Reason: Heartburn/Nausea Last Admin: 08/26/23 21:51 Dose: 30 ml Atorvastatin Calcium (Atorvastatin Calcium 40 Mg Tablet) 40 mg PO DAILY [facility] Last Admin: 08/30/23 08:16 Dose: 40 mg Divalproex Sodium (Divalproex Sodium Sprinkles 125 Mg ) 1,000 mg PO BEDTIME [facility] Last Admin: 08/29/23 20:20 Dose: 1,000 mg Furosemide (Furosemide 40 Mg Tablet) 40 mg PO DAILY [facility]; Protocol Last Admin: 08/30/23 08:16 Dose: 40 mg Magnesium Hydroxide (Milk Of Magnesia 30 Ml Oral.Susp) 30 ml PO DAILY PRN PRN Reason: Constipation Mirtazapine (Mirtazapine 7.5 Mg Tablet) 7.5 mg PO BEDTIME [facility] Last Admin: 08/29/23 20:20 Dose: 7.5 mg Polyethyl Glycol/Propylene Glycol (Propylene Glycol/Peg 400 Gel Eye Drops 10ml) 2 drop EYE-BOTH BID PRN PRN Reason: Dry Eyes Last Admin: 08/28/23 22:40 Dose: 2 drop Trazodone HCl (Trazodone Hcl 50 Mg Tablet) 50 mg PO BEDTIME PRN PRN Reason: Insomnia Last Admin: 08/29/23 20:19 Dose: 50 mg Allergies Allergies Allergy/AdvReac Type Severity Reaction Status Date / Time No Known Allergies Allergy Verified 08/22/23 17:55 Assessment & Plan Assessment & Plan (1) Mood disorder: Status: Acute Code(s): F39 - Unspecified mood [affective] disorder (2) Depression: Status: Acute Code(s): F32.A - Depression, unspecified Plan (1) Mood disorder: Status: Acute Code(s): F39 - Unspecified mood [affective] disorder Plan The patient is a 73-year-old female with a past history of mood disorder on Depakote, with several members who has completed suicide. The patient had been depressed after she learned that her granddaughter herself after [place]. Since then she developed depressive symptoms with suicidal ideation, no evidence of manic symptoms at this moment. Plan 1. Gather collateral information. 2. Continue with Depakote we will change to Depakote Sprinkles because the patient has problems swallowing it. 3. Regular blood work and referral to the hospitalist. 4. Reassessment results. 5. 15 minute checks since the patient had been able to contract for safety in the facility. 6. Depakote level for Saturday. Her level was 40.9. We are increasing Depakote up to 1000 mg at night. 7. Start Remeron 7.5 mg p.o. q.h.s. to target anxiety depression and insomnia on admission. 08/30/23 continue tx plan Reason for continued inpatient stay Substantial Risk for: harm to self and inability to function Time Spent With Patient Time: Total time managing care of this patient today ____ minutes.
[2023-08-30 18:00] VITALS: BP 143/62; PULSE 72; RESP 16; TEMP 36.4; O2SAT 96
[2023-08-30] MEDS: Mirtazapine 7.5 MG TABLET PO (20:08)
[2023-08-30] MEDS: traZODone HCL 50 MG TABLET PO (20:09)
[2023-08-30] MEDS: Divalproex Sodium Sprinkles 125 MG CAP.DR.SPR 1000 MG PO (20:09)
[2023-08-31] MEDS: Acetaminophen 325 MG TABLET 650 MG PO ×2 (06:33→20:32)
[2023-08-31 08:00] VITALS: BP 139/62; PULSE 67; RESP 17; TEMP 36.3; O2SAT 97
[2023-08-31] MEDS: Furosemide 40 MG TABLET PO (09:28)
[2023-08-31] MEDS: Atorvastatin Calcium 40 MG TABLET PO (09:28)
--- NOTE | 2023-08-31 10:53 | P.PNPSI_ITS ---
Subjective Subjective Date of Service: 08/31/23 Reason For Visit: MDD Interim History: met with patient. Discussed with Nursing. In the day area working on a painting project. Reported being in the hospital because she said she wanted to kill herself. Talked about the of her grandchild around the holiday. By suicide. Feeling extreme guilt that being unable to attend the . Was very clear she did not want to kill herself. Sleep has been okay. Appetite okay. Hopeful for a conference call next week with family in treatment team and disposition planning Medication Compliance: Yes Side effects from medications: No Attending Groups: Yes Review of Systems Acute medical concerns: No Review of Systems Review of Systems nothing acute Mental Status Exam Mental Status Exam Narrative: pleasant. Engaged. Hospital clothing. Fair hygiene. Utilizes a walker. Participating in our project. Affect is restricted but outside of grief, denies depression. No SI. No HI. No agitation or psychosis. Insight and judgment fair Diagnostics Vital Signs (24Hr): Vital Signs - 24 hr 08/30/23 18:00 08/31/23 08:00 Temperature 97.5 F 97.3 F Pulse Rate 72 67 Respiratory Rate 16 17 Blood Pressure 143/62 H 139/62 Pulse Oximetry 96 97 Oxygen Delivery Method Room Air Room Air BMI result Body Mass Index 27.6 Labs 08/23/23 08:03 Labs: Laboratory Results - last 48 hr 08/30/23 07:45 Valproic Acid 57.2 Medications Medications Current Medications Acetaminophen (Acetaminophen 325 Mg Tablet) 650 mg PO Q6H PRN PRN Reason: Headache/Pain Mild Scale (1-3) Last Admin: 08/31/23 06:33 Dose: 650 mg Al Hydroxide/Mg Hydroxide (Magnesium Hydrox/Alum Hydrox 30 Ml Oral.Susp) 30 ml PO Q6H PRN PRN Reason: Heartburn/Nausea Last Admin: 08/26/23 21:51 Dose: 30 ml Atorvastatin Calcium (Atorvastatin Calcium 40 Mg Tablet) 40 mg PO DAILY [facility] Last Admin: 08/31/23 09:28 Dose: 40 mg Divalproex Sodium (Divalproex Sodium Sprinkles 125 Mg ) 1,000 mg PO BEDTIME [facility] Last Admin: 08/30/23 20:09 Dose: 1,000 mg Furosemide (Furosemide 40 Mg Tablet) 40 mg PO DAILY [facility]; Protocol Last Admin: 08/31/23 09:28 Dose: 40 mg Magnesium Hydroxide (Milk Of Magnesia 30 Ml Oral.Susp) 30 ml PO DAILY PRN PRN Reason: Constipation Mirtazapine (Mirtazapine 7.5 Mg Tablet) 7.5 mg PO BEDTIME [facility] Last Admin: 08/30/23 20:08 Dose: 7.5 mg Polyethyl Glycol/Propylene Glycol (Propylene Glycol/Peg 400 Gel Eye Drops 10ml) 2 drop EYE-BOTH BID PRN PRN Reason: Dry Eyes Last Admin: 08/28/23 22:40 Dose: 2 drop Trazodone HCl (Trazodone Hcl 50 Mg Tablet) 50 mg PO BEDTIME PRN PRN Reason: Insomnia Last Admin: 08/30/23 20:09 Dose: 50 mg Allergies Allergies Allergy/AdvReac Type Severity Reaction Status Date / Time No Known Allergies Allergy Verified 08/22/23 17:55 Assessment & Plan Assessment & Plan (1) Mood disorder: Status: Acute Code(s): F39 - Unspecified mood [affective] disorder (2) Depression: Status: Acute Code(s): F32.A - Depression, unspecified Plan (1) Mood disorder: Status: Acute Code(s): F39 - Unspecified mood [affective] disorder Plan The patient is a 73-year-old female with a past history of mood disorder on Depakote, with several members who has completed suicide. The patient had been depressed after she learned that her granddaughter herself after [place]. Since then she developed depressive symptoms with suicidal ideation, no evidence of manic symptoms at this moment. Plan 1. Gather collateral information. 2. Continue with Depakote we will change to Depakote Sprinkles because the patient has problems swallowing it. 3. Regular blood work and referral to the hospitalist. 4. Reassessment results. 5. 15 minute checks since the patient had been able to contract for safety in the facility. 6. Depakote level for Saturday. Her level was 40.9. We are increasing Depakote up to 1000 mg at night. 7. Start Remeron 7.5 mg p.o. q.h.s. to target anxiety depression and insomnia on admission. 08/30/23 continue tx plan 2/3: no changes Reason for continued inpatient stay Substantial Risk for: harm to self Time Spent With Patient Time: Total time managing care of this patient today ____ minutes.
[2023-08-31 18:00] VITALS: BP 127/58; PULSE 72; RESP 16; TEMP 36.3; O2SAT 98
[2023-08-31] MEDS: Mirtazapine 7.5 MG TABLET PO (20:33)
[2023-08-31] MEDS: Divalproex Sodium Sprinkles 125 MG CAP.DR.SPR 1000 MG PO (20:34)
[2023-08-31] MEDS: traZODone HCL 50 MG TABLET PO (20:34)
[2023-09-01] MEDS: Acetaminophen 325 MG TABLET 650 MG PO ×2 (02:46→18:39)
[2023-09-01 08:00] VITALS: BP 125/60; PULSE 73; RESP 17; TEMP 36.2; O2SAT 96
[2023-09-01] MEDS: Atorvastatin Calcium 40 MG TABLET PO (08:33)
[2023-09-01] MEDS: Furosemide 40 MG TABLET PO (08:33)
--- NOTE | 2023-09-01 10:05 | HO.PSYCHPN ---
Subjective Subjective Date of Service: 09/01/23 Reason For Visit: MDD Subjective Notes: Conditional Voluntary Interim History: Met with patient. Discussed with Nursing. Concerned around bowel movements. Skin tear unremarkable. In room. Reports mood slightly better, still guilt. Very clear no SI. Sleep has been okay. Appetite okay. Remains hopeful for a conference call with family and treatment team and disposition planning Medication Compliance: Yes Side effects from medications: No Attending Groups: Intermittent Review of Systems Acute medical concerns: No Review of Systems Review of Systems nothing acute Mental Status Exam Mental Status Exam Narrative: Pleasant. Engaged. Hospital clothing. Fair hygiene. Utilizes a walker. Affect is restricted but outside of grief, denies depression. No SI. No HI. No agitation or psychosis. Insight and judgment fair Diagnostics Vital Signs (24Hr): Vital Signs - 24 hr 08/31/23 18:00 09/01/23 08:00 Temperature 97.3 F 97.1 F Pulse Rate 72 73 Respiratory Rate 16 17 Blood Pressure 127/58 L 125/60 Pulse Oximetry 98 96 Oxygen Delivery Method Room Air Room Air BMI result Body Mass Index 27.6 Labs 08/23/23 08:03 Medications Medications Current Medications Acetaminophen (Acetaminophen 325 Mg Tablet) 650 mg PO Q6H PRN PRN Reason: Headache/Pain Mild Scale (1-3) Last Admin: 09/01/23 02:46 Dose: 650 mg Al Hydroxide/Mg Hydroxide (Magnesium Hydrox/Alum Hydrox 30 Ml Oral.Susp) 30 ml PO Q6H PRN PRN Reason: Heartburn/Nausea Last Admin: 08/26/23 21:51 Dose: 30 ml Atorvastatin Calcium (Atorvastatin Calcium 40 Mg Tablet) 40 mg PO DAILY [facility] Last Admin: 09/01/23 08:33 Dose: 40 mg Divalproex Sodium (Divalproex Sodium Sprinkles 125 Mg ) 1,000 mg PO BEDTIME [facility] Last Admin: 08/31/23 20:34 Dose: 1,000 mg Furosemide (Furosemide 40 Mg Tablet) 40 mg PO DAILY [facility]; Protocol Last Admin: 09/01/23 08:33 Dose: 40 mg Magnesium Hydroxide (Milk Of Magnesia 30 Ml Oral.Susp) 30 ml PO DAILY PRN PRN Reason: Constipation Mirtazapine (Mirtazapine 7.5 Mg Tablet) 7.5 mg PO BEDTIME [facility] Last Admin: 08/31/23 20:33 Dose: 7.5 mg Polyethyl Glycol/Propylene Glycol (Propylene Glycol/Peg 400 Gel Eye Drops 10ml) 2 drop EYE-BOTH BID PRN PRN Reason: Dry Eyes Last Admin: 08/28/23 22:40 Dose: 2 drop Trazodone HCl (Trazodone Hcl 50 Mg Tablet) 50 mg PO BEDTIME PRN PRN Reason: Insomnia Last Admin: 08/31/23 20:34 Dose: 50 mg Allergies Allergies Allergy/AdvReac Type Severity Reaction Status Date / Time No Known Allergies Allergy Verified 08/22/23 17:55 Assessment & Plan Assessment & Plan (1) Mood disorder: Status: Acute Code(s): F39 - Unspecified mood [affective] disorder (2) Depression: Status: Acute Code(s): F32.A - Depression, unspecified Plan (1) Mood disorder: Status: Acute Code(s): F39 - Unspecified mood [affective] disorder Plan The patient is a 73-year-old female with a past history of mood disorder on Depakote, with several members who has completed suicide. The patient had been depressed after she learned that her granddaughter herself after [place]. Since then she developed depressive symptoms with suicidal ideation, no evidence of manic symptoms at this moment. Plan 1. Gather collateral information. 2. Continue with Depakote we will change to Depakote Sprinkles because the patient has problems swallowing it. 3. Regular blood work and referral to the hospitalist. 4. Reassessment results. 5. 15 minute checks since the patient had been able to contract for safety in the facility. 6. Depakote level for Saturday. Her level was 40.9. We are increasing Depakote up to 1000 mg at night. 7. Start Remeron 7.5 mg p.o. q.h.s. to target anxiety depression and insomnia on admission. 08/30/23 continue tx plan 2/3: no changes 09/01: no changes Reason for continued inpatient stay Substantial Risk for: harm to self Time Spent With Patient Time: Total time managing care of this patient today ____ minutes.
--- NOTE | 2023-09-01 15:58 | PC.NURSE ---
Patient has a small split on the top of her left thumb, skin is very dry, no drainage, redness, left open to air.
[2023-09-01 18:00] VITALS: BP 127/59; PULSE 62; RESP 16; TEMP 36.1; O2SAT 95
[2023-09-01] MEDS: Mirtazapine 7.5 MG TABLET PO (19:48)
[2023-09-01] MEDS: Divalproex Sodium Sprinkles 125 MG CAP.DR.SPR 1000 MG PO (19:49)
[2023-09-01] MEDS: traZODone HCL 50 MG TABLET PO ×2 (20:04→22:28)
[2023-09-02] MEDS: Propylene Glycol/PEG 400 Gel Eye Drops 10ML 2 DROP EYE-BOTH ×2 (00:42→20:36)
[2023-09-02] MEDS: Acetaminophen 325 MG TABLET 650 MG PO (02:32)
[2023-09-02 08:18] LABS: Valproate 49.7 mcg/mL (50.0-100.0)
--- NOTE | 2023-09-02 08:31 | HO.PSYCHPN ---
Subjective Subjective Reason For Visit: MDD Diagnostics Vital Signs (24Hr): Vital Signs - 24 hr 09/01/23 18:00 Temperature 97 F Pulse Rate 62 Respiratory Rate 16 Blood Pressure 127/59 L Pulse Oximetry 95 Oxygen Delivery Method Room Air BMI result Body Mass Index 27.6 Labs 08/23/23 08:03 Labs: Laboratory Results - last 48 hr 09/02/23 07:51 Valproic Acid 49.7 L Medications Medications Current Medications Acetaminophen (Acetaminophen 325 Mg Tablet) 650 mg PO Q6H PRN PRN Reason: Headache/Pain Mild Scale (1-3) Last Admin: 09/02/23 02:32 Dose: 650 mg Al Hydroxide/Mg Hydroxide (Magnesium Hydrox/Alum Hydrox 30 Ml Oral.Susp) 30 ml PO Q6H PRN PRN Reason: Heartburn/Nausea Last Admin: 08/26/23 21:51 Dose: 30 ml Atorvastatin Calcium (Atorvastatin Calcium 40 Mg Tablet) 40 mg PO DAILY [facility] Last Admin: 09/01/23 08:33 Dose: 40 mg Divalproex Sodium (Divalproex Sodium Sprinkles 125 Mg ) 1,000 mg PO BEDTIME [facility] Last Admin: 09/01/23 19:49 Dose: 1,000 mg Furosemide (Furosemide 40 Mg Tablet) 40 mg PO DAILY [facility]; Protocol Last Admin: 09/01/23 08:33 Dose: 40 mg Magnesium Hydroxide (Milk Of Magnesia 30 Ml Oral.Susp) 30 ml PO DAILY PRN PRN Reason: Constipation Mirtazapine (Mirtazapine 7.5 Mg Tablet) 7.5 mg PO BEDTIME [facility] Last Admin: 09/01/23 19:48 Dose: 7.5 mg Polyethyl Glycol/Propylene Glycol (Propylene Glycol/Peg 400 Gel Eye Drops 10ml) 2 drop EYE-BOTH BID PRN PRN Reason: Dry Eyes Last Admin: 09/02/23 00:42 Dose: 2 drop Trazodone HCl (Trazodone Hcl 50 Mg Tablet) 50 mg PO BEDTIME PRN PRN Reason: Insomnia Last Admin: 09/01/23 22:28 Dose: 50 mg Allergies Allergies Allergy/AdvReac Type Severity Reaction Status Date / Time No Known Allergies Allergy Verified 08/22/23 17:55 Assessment & Plan Assessment & Plan (1) Mood disorder: Status: Acute Code(s): F39 - Unspecified mood [affective] disorder (2) Depression: Status: Acute Code(s): F32.A - Depression, unspecified Plan (1) Mood disorder: Status: Acute Code(s): F39 - Unspecified mood [affective] disorder Plan The patient is a 73-year-old female with a past history of mood disorder on Depakote, with several members who has completed suicide. The patient had been depressed after she learned that her granddaughter herself after [place]. Since then she developed depressive symptoms with suicidal ideation, no evidence of manic symptoms at this moment. Plan 1. Gather collateral information. 2. Continue with Depakote we will change to Depakote Sprinkles because the patient has problems swallowing it. 3. Regular blood work and referral to the hospitalist. 4. Reassessment results. 5. 15 minute checks since the patient had been able to contract for safety in the facility. 6. Depakote level for Saturday. Her level was 40.9. We are increasing Depakote up to 1000 mg at night. 7. Start Remeron 7.5 mg p.o. q.h.s. to target anxiety depression and insomnia on admission. 08/30/23 continue tx plan /3: no changes 09/01: no changes Time Spent With Patient Time: Total time managing care of this patient today ____ minutes.
[2023-09-02 08:34] VITALS: BP 127/60; PULSE 75; RESP 16; TEMP 36.9; O2SAT 97
[2023-09-02] MEDS: Furosemide 40 MG TABLET PO (08:36)
[2023-09-02] MEDS: Atorvastatin Calcium 40 MG TABLET PO (08:36)
--- NOTE | 2023-09-02 14:57 | HO.PSYCHPN ---
Subjective Subjective Date of Service: 09/02/23 Reason For Visit: MDD Interim History: Met with Patient; discussed with team; reviewed chart Patient moderately manic, pleasant, cooperative and friendly. Intermittently making grandiose claims that she has super leija however other times she denies that she thinks this at all. Patient denies any SI; she thinks she is having trouble sleeping but accepts that staff seems to think that she is sleeping better. Patient says she wants to be on the unit to help get her medications straight because she needs the help... Patient says there is a meeting with her 2 sisters coming up which she is looking forward to because she is trying to get a balance back in her life. Otherwise, Patient rambling about different things, family relationships, places she is lived Medication trials: Celexa Trizenyptapadmini Hayeslar which was a big bust... Mental Status Exam Mental Status Exam Narrative: Pt is alert and oriented; behavior is moderately manic but also cooperative, friendly; patient is not in distress; dressed in casual attire with unkempt hair but adequate hygiene; mood is described as good and affect a little expansive; eye contact appropriate; Speech moderately pressured and verbose; otherwise normal volume and prosody; no obvious psychomotor agitation present; thought process is goal directed, but also distracted and circumstantial; Thought content is on tx but intermittently on some grandiose ideas such as having super leija; denies any SI/HI. There is no evidence of perceptual disturbance. Patients insight and judgment impaired but improving Diagnostics Vital Signs (24Hr): Vital Signs - 24 hr 09/01/23 18:00 09/02/23 08:34 Temperature 97 F 98.4 F Pulse Rate 62 75 Respiratory Rate 16 16 Blood Pressure 127/59 L 127/60 Pulse Oximetry 95 97 Oxygen Delivery Method Room Air Room Air BMI result Body Mass Index 27.6 Labs 08/23/23 08:03 Labs: Laboratory Results - last 48 hr 09/02/23 07:51 Valproic Acid 49.7 L Medications Medications Current Medications Acetaminophen (Acetaminophen 325 Mg Tablet) 650 mg PO Q6H PRN PRN Reason: Headache/Pain Mild Scale (1-3) Last Admin: 09/02/23 02:32 Dose: 650 mg Al Hydroxide/Mg Hydroxide (Magnesium Hydrox/Alum Hydrox 30 Ml Oral.Susp) 30 ml PO Q6H PRN PRN Reason: Heartburn/Nausea Last Admin: 08/26/23 21:51 Dose: 30 ml Atorvastatin Calcium (Atorvastatin Calcium 40 Mg Tablet) 40 mg PO DAILY [facility] Last Admin: 09/02/23 08:36 Dose: 40 mg Divalproex Sodium (Divalproex Sodium Sprinkles 125 Mg ) 1,000 mg PO BEDTIME [facility] Last Admin: 09/01/23 19:49 Dose: 1,000 mg Furosemide (Furosemide 40 Mg Tablet) 40 mg PO DAILY [facility]; Protocol Last Admin: 09/02/23 08:36 Dose: 40 mg Magnesium Hydroxide (Milk Of Magnesia 30 Ml Oral.Susp) 30 ml PO DAILY PRN PRN Reason: Constipation Mirtazapine (Mirtazapine 7.5 Mg Tablet) 7.5 mg PO BEDTIME [facility] Last Admin: 09/01/23 19:48 Dose: 7.5 mg Polyethyl Glycol/Propylene Glycol (Propylene Glycol/Peg 400 Gel Eye Drops 10ml) 2 drop EYE-BOTH BID PRN PRN Reason: Dry Eyes Last Admin: 09/02/23 00:42 Dose: 2 drop Trazodone HCl (Trazodone Hcl 50 Mg Tablet) 50 mg PO BEDTIME PRN PRN Reason: Insomnia Last Admin: 09/01/23 22:28 Dose: 50 mg Allergies Allergies Allergy/AdvReac Type Severity Reaction Status Date / Time No Known Allergies Allergy Verified 08/22/23 17:55 Assessment & Plan Assessment & Plan (1) Bipolar 1 disorder: Status: Acute Code(s): F31.9 - Bipolar disorder, unspecified (2) Mood disorder: Status: Acute Code(s): F39 - Unspecified mood [affective] disorder (3) Depression: Status: Acute Code(s): F32.A - Depression, unspecified Plan 73-year-old female presents with manic symptoms Hospital course: 2/5 Pt moderately manic, pleasant, cooperative and friendly. Intermittently making grandiose claims that she has super leija however other times she denies that she thinks this at all. Patient denies any SI; she thinks she is having trouble sleeping but accepts that staff seems to think that she is sleeping better. Patient says she wants to be on the unit to help get her medications straight because she needs the help... Patient says there is a meeting with her 2 sisters coming up which she is looking forward to because she is trying to get a balance back in her life. Otherwise, Patient rambling about different things, family relationships, places she is lived -patient on Zyprexa 7.5 mg q.h.s.; staff says she is sleeping; given her age will leave at current dose for now in hopes that it will have increasing effect -mentioned she's supposed to be on eye drops; she has not sure details and thinks maybe she has pre glaucoma; will communicate with primary team (documentation writer reviewed home med list and see Lotemax but nothing for glaucoma) Plan: CV q15 continue Zyprexa 7.5mg qhs Family meeting Sunday 09/03 Medication trials: Celexa Trileptal Yvonne which was a big bust... Patient educated on: diagnosis, medication risk/benefits and medical condition Informed Consent: understands, does not understand and further education needed Reason for continued inpatient stay Substantial Risk for: inability to function Time Spent With Patient Time: Total time managing care of this patient today ____ minutes.
[2023-09-02 19:30] VITALS: BP 135/63; PULSE 70; RESP 18; TEMP 36.3; O2SAT 97
[2023-09-02] MEDS: Divalproex Sodium Sprinkles 125 MG CAP.DR.SPR 1000 MG PO (20:36)
[2023-09-02] MEDS: Mirtazapine 7.5 MG TABLET PO (20:37)
[2023-09-02] MEDS: traZODone HCL 50 MG TABLET PO (20:37)
[2023-09-03 08:32] VITALS: BP 121/57; PULSE 82; RESP 18; TEMP 36.6; O2SAT 96
[2023-09-03] MEDS: Furosemide 40 MG TABLET PO (08:33)
[2023-09-03] MEDS: Atorvastatin Calcium 40 MG TABLET PO (08:34)
[2023-09-03] MEDS: Acetaminophen 325 MG TABLET 650 MG PO (08:37)
--- NOTE | 2023-09-03 10:06 | P.PNPSI_ITS ---
Subjective Subjective Date of Service: 09/03/23 Reason For Visit: MDD Subjective Notes: Conditional Voluntary Interim History: The nursing staff reported the patient had been compliant with treatment, she denies depression anxiety at this moment. The clinical social worker reported that she met with her son over the phone and they were concerned about the services the community. Her Depakote level is nearly therapeutic level, no side effects. On interview the patient denies active suicidal ideation. The occupational therapist reported that she is mostly stable in groups. We are thinking of possible discharge at the end of the week. Mental Status Exam Mental Status Exam Patient Appearance: Appropriate Patient Orientation: Person and Situation Level of Consciousness: Awake and Appropriate Patient Behavior: Guarded and Passive Mood Description: Withdrawn Affect Description: Constricted Patient Cognition Impaired: Yes Ability to Follow Directions: Good Speech Pattern: Clear Hallucinations: None Delusions: Not Present Thought Process: Distracted and Evasive Thought Content: positive for [place] and positive for Circumstantial Judgement: Fair Diagnostics Vital Signs (24Hr): Vital Signs - 24 hr 09/02/23 19:30 09/03/23 08:32 Temperature 97.3 F 97.9 F Pulse Rate 70 82 Respiratory Rate 18 18 Blood Pressure 135/63 121/57 L Pulse Oximetry 97 96 Oxygen Delivery Method Room Air Room Air BMI result Body Mass Index 27.6 Labs 08/23/23 08:03 Labs: Laboratory Results - last 48 hr 09/02/23 07:51 Valproic Acid 49.7 L Medications Medications Current Medications Acetaminophen (Acetaminophen 325 Mg Tablet) 650 mg PO Q6H PRN PRN Reason: Headache/Pain Mild Scale (1-3) Last Admin: 09/03/23 08:37 Dose: 650 mg Al Hydroxide/Mg Hydroxide (Magnesium Hydrox/Alum Hydrox 30 Ml Oral.Susp) 30 ml PO Q6H PRN PRN Reason: Heartburn/Nausea Last Admin: 08/26/23 21:51 Dose: 30 ml Atorvastatin Calcium (Atorvastatin Calcium 40 Mg Tablet) 40 mg PO DAILY [facility] Last Admin: 09/03/23 08:34 Dose: 40 mg Divalproex Sodium (Divalproex Sodium Sprinkles 125 Mg ) 1,000 mg PO BEDTIME [facility] Last Admin: 09/02/23 20:36 Dose: 1,000 mg Furosemide (Furosemide 40 Mg Tablet) 40 mg PO DAILY [facility]; Protocol Last Admin: 09/03/23 08:33 Dose: 40 mg Magnesium Hydroxide (Milk Of Magnesia 30 Ml Oral.Susp) 30 ml PO DAILY PRN PRN Reason: Constipation Mirtazapine (Mirtazapine 7.5 Mg Tablet) 7.5 mg PO BEDTIME RAF Last Admin: 09/02/23 20:37 Dose: 7.5 mg Polyethyl Glycol/Propylene Glycol (Propylene Glycol/Peg 400 Gel Eye Drops 10ml) 2 drop EYE-BOTH BID PRN PRN Reason: Dry Eyes Last Admin: 09/02/23 20:36 Dose: 2 drop Trazodone HCl (Trazodone Hcl 50 Mg Tablet) 50 mg PO BEDTIME PRN PRN Reason: Insomnia Last Admin: 09/02/23 20:37 Dose: 50 mg Allergies Allergies Allergy/AdvReac Type Severity Reaction Status Date / Time No Known Allergies Allergy Verified 08/22/23 17:55 Assessment & Plan Assessment & Plan (1) Bipolar 1 disorder: Status: Acute Code(s): F31.9 - Bipolar disorder, unspecified (2) Mood disorder: Status: Acute Code(s): F39 - Unspecified mood [affective] disorder (3) Depression: Status: Acute Code(s): F32.A - Depression, unspecified Plan 73-year-old female presents with manic symptoms Hospital course: 2/5 Pt moderately manic, pleasant, cooperative and friendly. Intermittently making grandiose claims that she has super leija however other times she denies that she thinks this at all. Patient denies any SI; she thinks she is having trouble sleeping but accepts that staff seems to think that she is sleeping better. Patient says she wants to be on the unit to help get her medications straight because she needs the help... Patient says there is a meeting with her 2 sisters coming up which she is looking forward to because she is trying to get a balance back in her life. Otherwise, Patient rambling about different things, family relationships, places she is lived -patient on Zyprexa 7.5 mg q.h.s.; staff says she is sleeping; given her age will leave at current dose for now in hopes that it will have increasing effect -mentioned she's supposed to be on eye drops; she has not sure details and thinks maybe she has pre glaucoma; will communicate with primary team (service writer reviewed home med list and see Lotemax but nothing for glaucoma) Plan: CV q15 continue Zyprexa 7.5mg qhs Family meeting Sunday 09/03 Medication trials: Celexa Trileptal Vraylar which was a big bust... Reason for continued inpatient stay Substantial Risk for: inability to function, rapid decompensation and med/psych decompensation Time Spent With Patient Time: Total time managing care of this patient today __20__ minutes.
[2023-09-03 18:00] VITALS: BP 116/60; PULSE 85; RESP 18; TEMP 36.8; O2SAT 98
[2023-09-03] MEDS: Divalproex Sodium Sprinkles 125 MG CAP.DR.SPR 1000 MG PO (20:53)
[2023-09-03] MEDS: Mirtazapine 7.5 MG TABLET PO (20:53)
[2023-09-03] MEDS: traZODone HCL 50 MG TABLET PO (20:55)
[2023-09-03] MEDS: Propylene Glycol/PEG 400 Gel Eye Drops 10ML 2 DROP EYE-BOTH (22:13)
[2023-09-04] MEDS: Acetaminophen 325 MG TABLET 650 MG PO ×2 (02:22→20:30)
[2023-09-04] MEDS: traZODone HCL 50 MG TABLET PO ×3 (02:23→23:55)
[2023-09-04 06:00] VITALS: BP 159/71; PULSE 78; RESP 15; TEMP 36.4; O2SAT 97
--- NOTE | 2023-09-04 10:07 | P.PNPSI_ITS ---
Subjective Subjective Date of Service: 09/04/23 Reason For Visit: MDD Subjective Notes: Conditional Voluntary Interim History: The nursing staff reported the patient had been compliant with medication she had been flat and depressed but slept well. On interview the patient denies new symptoms most likely she is at her baseline. Confused but easily redirectable. The social work case manager reported that she could be discharged probably next Saturday. Mental Status Exam Mental Status Exam Patient Appearance: Well Grooomed and Appropriate Patient Orientation: Person Level of Consciousness: Awake and Disoriented Patient Behavior: Guarded Mood Description: Calm Affect Description: Constricted Patient Cognition Impaired: Yes Ability to Follow Directions: Good Speech Pattern: Clear Hallucinations: None Delusions: Not Present Thought Process: Linear Thought Content: positive for Circumstantial and positive for Poverty of Content Judgement: Poor Diagnostics Vital Signs (24Hr): Vital Signs - 24 hr 09/03/23 18:00 Temperature 98.3 F Pulse Rate 85 Respiratory Rate 18 Blood Pressure 116/60 Pulse Oximetry 98 Oxygen Delivery Method Room Air BMI result Body Mass Index 27.6 Labs 08/23/23 08:03 Medications Medications Current Medications Acetaminophen (Acetaminophen 325 Mg Tablet) 650 mg PO Q6H PRN PRN Reason: Headache/Pain Mild Scale (1-3) Last Admin: 09/04/23 02:22 Dose: 650 mg Al Hydroxide/Mg Hydroxide (Magnesium Hydrox/Alum Hydrox 30 Ml Oral.Susp) 30 ml PO Q6H PRN PRN Reason: Heartburn/Nausea Last Admin: 08/26/23 21:51 Dose: 30 ml Atorvastatin Calcium (Atorvastatin Calcium 40 Mg Tablet) 40 mg PO DAILY [facility] Last Admin: 09/03/23 08:34 Dose: 40 mg Divalproex Sodium (Divalproex Sodium Sprinkles 125 Mg Quinn.) 1,000 mg PO BEDTIME [facility] Last Admin: 09/03/23 20:53 Dose: 1,000 mg Furosemide (Furosemide 40 Mg Tablet) 40 mg PO DAILY [facility]; Protocol Last Admin: 09/03/23 08:33 Dose: 40 mg Magnesium Hydroxide (Milk Of Magnesia 30 Ml Oral.Susp) 30 ml PO DAILY PRN PRN Reason: Constipation Mirtazapine (Mirtazapine 7.5 Mg Tablet) 7.5 mg PO BEDTIME [facility] Last Admin: 09/03/23 20:53 Dose: 7.5 mg Polyethyl Glycol/Propylene Glycol (Propylene Glycol/Peg 400 Gel Eye Drops 10ml) 2 drop EYE-BOTH BID PRN PRN Reason: Dry Eyes Last Admin: 09/03/23 22:13 Dose: 2 drop Trazodone HCl (Trazodone Hcl 50 Mg Tablet) 50 mg PO BEDTIME PRN PRN Reason: Insomnia Last Admin: 09/04/23 02:23 Dose: 50 mg Allergies Allergies Allergy/AdvReac Type Severity Reaction Status Date / Time No Known Allergies Allergy Verified 08/22/23 17:55 Assessment & Plan Assessment & Plan (1) Bipolar 1 disorder: Status: Acute Code(s): F31.9 - Bipolar disorder, unspecified (2) Mood disorder: Status: Acute Code(s): F39 - Unspecified mood [affective] disorder (3) Depression: Status: Acute Code(s): F32.A - Depression, unspecified Plan 73-year-old female presents with manic symptoms Hospital course: 2/5 Pt moderately manic, pleasant, cooperative and friendly. Intermittently making grandiose claims that she has super leija however other times she denies that she thinks this at all. Patient denies any SI; she thinks she is having trouble sleeping but accepts that staff seems to think that she is sleeping better. Patient says she wants to be on the unit to help get her medications straight because she needs the help... Patient says there is a meeting with her 2 sisters coming up which she is looking forward to because she is trying to get a balance back in her life. Otherwise, Patient rambling about different things, family relationships, places she is lived -patient on Zyprexa 7.5 mg q.h.s.; staff says she is sleeping; given her age will leave at current dose for now in hopes that it will have increasing effect -mentioned she's supposed to be on eye drops; she has not sure details and thinks maybe she has pre glaucoma; will communicate with primary team (group underwriter reviewed home med list and see Lotemax but nothing for glaucoma) Plan: CV q15 continue Zyprexa 7.5mg qhs Family meeting Saturday/ Medication trials: Celexa Trileptal Yvonne which was a big bust... Reason for continued inpatient stay Substantial Risk for: inability to function, rapid decompensation and med/psych decompensation Time Spent With Patient Time: Total time managing care of this patient today __20__ minutes.
[2023-09-04] MEDS: Furosemide 40 MG TABLET PO (10:13)
[2023-09-04] MEDS: Atorvastatin Calcium 40 MG TABLET PO (10:13)
[2023-09-04] MEDS: Propylene Glycol/PEG 400 Gel Eye Drops 10ML 2 DROP EYE-BOTH ×2 (12:59→20:30)
[2023-09-04 18:00] VITALS: BP 126/59; PULSE 77; RESP 18; TEMP 36.4; O2SAT 99
[2023-09-04] MEDS: Mirtazapine 7.5 MG TABLET PO (20:30)
[2023-09-04] MEDS: Divalproex Sodium Sprinkles 125 MG CAP.DR.SPR 1000 MG PO (20:31)
--- NOTE | 2023-09-05 | ECG_ITS ---
Test Reason : Fall Blood Pressure : / mmHG Vent. Rate : 069 BPM Atrial Rate : 069 BPM P-R Int : 166 ms QRS Dur : 142 ms QT Int : 452 ms P-R-T Axes : 063 -60 042 degrees QTc Int : 484 ms Normal sinus rhythm Right bundle branch block Left anterior fascicular block Bifascicular block Minimal voltage criteria for LVH, may be normal variant ( R in aVL ) Abnormal ECG No previous ECGs available Referred By: Ozzie Rosales Electronically Signed By:ELLIOT MILLER
[2023-09-05 04:15] VITALS: BP 155/67; PULSE 72; RESP 16; O2SAT 99
[2023-09-05] MEDS: Acetaminophen 325 MG TABLET 650 MG PO ×2 (05:13→21:38)
--- NOTE | 2023-09-05 05:51 | PC.NURSE ---
Found pt lying in the floor in her right side near her bed w/ the right side of the head near the side table. Pt obtained a 1 inch laceration on the right temporal head w/ moderate bleeding. Rapid response called and attended the pt immediately. Pt said she is trying to go to the BR and she fell and hit her head. Body assessment done,able to move all extremities w/o pain w/ good strength. Pt has sl. dizziness, slightly nauseated and c/o sl. headache after the fall.No bruises noted. Pt seen by hospitalist,Dr. Silverio Rosales w/ n.o of EKG, xray and CT Scan-done w/ pending results. Tree Trimming Supervisor- Kenia Clark and Dr. Mane notified of the fall.[id number] temp-97.2, SPO2-97% at room air. We'll continue to monitor pt.
[2023-09-05 06:09] VITALS: BP 155/67; PULSE 76; RESP 20; TEMP 36.2; O2SAT 97
--- NOTE | 2023-09-05 06:12 | PC.NURSE ---
Pt noted to have frequency of urination, no c/o dysuria. Bladder scan done w/36ml of residual urine.
[2023-09-05 06:30] VITALS: RESP 16
--- NOTE | 2023-09-05 06:46 | PM.EVENT ---
Event Note Date of Service: 09/05/23 Event Note: Rapid response was activated after the patient's sustaining a fall receiving significant trauma to the right side of her head. She was trying to use the bathroom, tripped and fell. She denies any significant headache, acute vision disturbances, palpitations or significant dizziness. Denies chest pain or shortness on breath. She was able to stand up with assistance and denied pain to her hips. Head exam: 1 in laceration over the right temporal area. Pupils equally round. Cardiopulmonary exam is negative. Head C-spine CT scan on her stat and showed no acute abnormalities. Bilateral hip/pelvic x-ray showed no fracture or dislocations. Stitches are not necessary. Instructed nursing about helping patient to clean patient's wound with soap/shampoo and water. Time Spent With Patient Time: Total time managing care of this patient today ____ minutes.
[2023-09-05 07:59] VITALS: BP 130/63; PULSE 78; RESP 17; TEMP 36.3; O2SAT 99
[2023-09-05] MEDS: Furosemide 40 MG TABLET PO (08:01)
[2023-09-05] MEDS: Atorvastatin Calcium 40 MG TABLET PO (08:01)
[2023-09-05 11:44] LABS: Appearance Urine Clear; Color Urine Yellow; Glucose Urine UA Negative (Negative); Leukocyte Esterase Urine Trace (Negative); Nitrite Urine Negative (Negative); PH 5.5 (5.0-9.0); UMIC TRIGGER UACC YES; Urine Blood Negative (Negative); Urine Ketones Negative (Negative); Urine Protein Negative (Neg-Trace)
[2023-09-05 11:51] LABS: Bacteria Urine None Seen (None Seen); Hyaline Casts Urine 0-2 /LPF (0-2); RBC Urine 0-2 /HPF (0-2); Squamous Epithelial Cell Urine 0-2 /HPF (0-2); WBC Urine 0-5 /HPF (0-5)
--- NOTE | 2023-09-05 12:13 | PC.NURSE ---
Attempted 4 times thiss morning to call patients son Wisam Peralta ([phone] and [phone]) regarding fall during overnight shift. Son did not answer
--- NOTE | 2023-09-05 13:14 | P.PNPSI_ITS ---
Subjective Subjective Date of Service: 09/05/23 Reason For Visit: MDD Subjective Notes: Conditional Voluntary Interim History: The nursing staff reported that she denies anxiety, she had been fully compliant with treatment. Last night she had a fall and she had head trauma but she had been fully workout. On interview the patient complains that she is doing better, she complained of dysphoria but her UA done today came back negative. Most likely she will be discharged tomorrow if she is medically clear. Mental Status Exam Mental Status Exam Patient Appearance: Appropriate Patient Orientation: Person and Situation Level of Consciousness: Awake and Appropriate Patient Behavior: Guarded and Passive Mood Description: Withdrawn Affect Description: Constricted Patient Cognition Impaired: Yes Ability to Follow Directions: Good Speech Pattern: Clear Hallucinations: None Delusions: Not Present Thought Process: Distracted and Slowed Thinking Thought Content: positive for [place] and positive for Poverty of Content Judgement: Fair Diagnostics Vital Signs (24Hr): Vital Signs - 24 hr 09/04/23 18:00 09/05/23 04:15 09/05/23 06:09 Temperature 97.6 F 97.2 F Pulse Rate 77 72 76 Respiratory Rate 18 16 20 Blood Pressure 126/59 L 155/67 H 155/67 H Pulse Oximetry 99 99 97 Oxygen Delivery Method Room Air Room Air Room Air 09/05/23 06:30 09/05/23 07:59 Temperature 97.4 F Pulse Rate 78 Respiratory Rate 16 17 Blood Pressure 130/63 Pulse Oximetry 99 Oxygen Delivery Method Room Air BMI result Body Mass Index 27.6 Labs 08/23/23 08:03 Labs: Laboratory Results - last 48 hr 09/05/23 11:28 Urine Color Yellow Urine Appearance Clear Urine pH 5.5 Ur Specific [employer] 1.010 Urine Protein Negative Urine Glucose (UA) Negative Urine Ketones Negative Urine Blood Negative Urine Nitrite Negative Ur Leukocyte Esterase Trace H Urine RBC 0-2 Urine WBC 0-5 Ur Squamous Epith Cells 0-2 Urine Bacteria None Seen Hyaline Casts 0-2 Imaging Radiology Impressions: ITS Impressions Hip/Pelvis X-Ray 09/05/23 04:48 IMPRESSION: Mild degenerative changes. No fracture or dislocation. Cervical Spine CT 09/05/23 05:00 IMPRESSION: 1. No acute intracranial process seen. 2. Mild cerebral volume loss with chronic small vessel ischemic changes. 3. There is no acute cervical spine fracture or malalignment. There are degenerative disc changes and facet joint arthropathy throughout the cervical spine with multilevel mild spinal canal and neuroforaminal narrowing. Head CT 09/05/23 05:00 IMPRESSION: 1. No acute intracranial process seen. 2. Mild cerebral volume loss with chronic small vessel ischemic changes. 3. There is no acute cervical spine fracture or malalignment. There are degenerative disc changes and facet joint arthropathy throughout the cervical spine with multilevel mild spinal canal and neuroforaminal narrowing. Medications Medications Current Medications Acetaminophen (Acetaminophen 325 Mg Tablet) 650 mg PO Q6H PRN PRN Reason: Headache/Pain Mild Scale (1-3) Last Admin: 09/05/23 05:13 Dose: 650 mg Al Hydroxide/Mg Hydroxide (Magnesium Hydrox/Alum Hydrox 30 Ml Oral.Susp) 30 ml PO Q6H PRN PRN Reason: Heartburn/Nausea Last Admin: 08/26/23 21:51 Dose: 30 ml Atorvastatin Calcium (Atorvastatin Calcium 40 Mg Tablet) 40 mg PO DAILY [facility] Last Admin: 09/05/23 08:01 Dose: 40 mg Divalproex Sodium (Divalproex Sodium Sprinkles 125 Mg Cap.) 1,000 mg PO BEDTIME [facility] Last Admin: 09/04/23 20:31 Dose: 1,000 mg Furosemide (Furosemide 40 Mg Tablet) 40 mg PO DAILY [facility]; Protocol Last Admin: 09/05/23 08:01 Dose: 40 mg Magnesium Hydroxide (Milk Of Magnesia 30 Ml Oral.Susp) 30 ml PO DAILY PRN PRN Reason: Constipation Mirtazapine (Mirtazapine 7.5 Mg Tablet) 7.5 mg PO BEDTIME [facility] Last Admin: 09/04/23 20:30 Dose: 7.5 mg Polyethyl Glycol/Propylene Glycol (Propylene Glycol/Peg 400 Gel Eye Drops 10ml) 2 drop EYE-BOTH BID PRN PRN Reason: Dry Eyes Last Admin: 09/04/23 20:30 Dose: 2 drop Trazodone HCl (Trazodone Hcl 50 Mg Tablet) 50 mg PO BEDTIME PRN PRN Reason: Insomnia Last Admin: 09/04/23 23:55 Dose: 50 mg Allergies Allergies Allergy/AdvReac Type Severity Reaction Status Date / Time No Known Allergies Allergy Verified 08/22/23 17:55 Assessment & Plan Assessment & Plan (1) Bipolar 1 disorder: Status: Acute Code(s): F31.9 - Bipolar disorder, unspecified (2) Mood disorder: Status: Acute Code(s): F39 - Unspecified mood [affective] disorder (3) Depression: Status: Acute Code(s): F32.A - Depression, unspecified Plan 73-year-old female presents with manic symptoms Hospital course: 2/5 Pt moderately manic, pleasant, cooperative and friendly. Intermittently making grandiose claims that she has super leija however other times she denies that she thinks this at all. Patient denies any SI; she thinks she is having trouble sleeping but accepts that staff seems to think that she is sleeping better. Patient says she wants to be on the unit to help get her medications straight because she needs the help... Patient says there is a meeting with her 2 sisters coming up which she is looking forward to because she is trying to get a balance back in her life. Otherwise, Patient rambling about different things, family relationships, places she is lived -patient on Zyprexa 7.5 mg q.h.s.; staff says she is sleeping; given her age will leave at current dose for now in hopes that it will have increasing effect -mentioned she's supposed to be on eye drops; she has not sure details and thinks maybe she has pre glaucoma; will communicate with primary team (ghost writer reviewed home med list and see Lotemax but nothing for glaucoma) Plan: CV q15 continue Zyprexa 7.5mg qhs Family meeting Sunday 09/03 Medication trials: Celexa Trileptal Yvonne which was a big bust... Reason for continued inpatient stay Substantial Risk for: inability to function, rapid decompensation and med/psych decompensation Time Spent With Patient Time: Total time managing care of this patient today _20___ minutes.
[2023-09-05 18:00] VITALS: BP 131/58; PULSE 68; RESP 18; TEMP 36.6; O2SAT 98
[2023-09-05] MEDS: Mirtazapine 7.5 MG TABLET PO (21:18)
[2023-09-05] MEDS: Divalproex Sodium Sprinkles 125 MG CAP.DR.SPR 1000 MG PO (21:18)
[2023-09-05] MEDS: traZODone HCL 50 MG TABLET PO (21:38)
[2023-09-06 08:14] VITALS: BP 144/65; PULSE 85; RESP 17; TEMP 37.1; O2SAT 99
[2023-09-06] MEDS: Furosemide 40 MG TABLET PO (08:24)
[2023-09-06] MEDS: Atorvastatin Calcium 40 MG TABLET PO (08:24)
[2023-09-06] MEDS: Propylene Glycol/PEG 400 Gel Eye Drops 10ML 2 DROP EYE-BOTH (08:26)
--- NOTE | 2023-09-06 09:12 | PM.PSYDC ---
DS: Providers Provider Date of Service: 09/06/23 Date of admission: 08/22/23 16:56 Date of discharge: 09/06/23 Primary care physician: Niurka Villagran MD Consults: 08/22/23 18:03 Consult to Hospitalist Routine Comment: Consulting Provider: Hospitalist Reason For Exam: medical H&P Attending physician on discharge: Martin Wall DS: Diagnosis Discharge Diagnosis (1) Bipolar 1 disorder: Status: Acute (2) Mood disorder: Status: Acute (3) Depression: Status: Acute DS: Medications Discharge Medications Home Medications: Home Medications Medication Instructions Recorded Confirmed atorvastatin 40 mg tablet 40 mg PO DAILY 08/22/23 08/22/23 divalproex 250 mg tablet,extended 750 mg PO BEDTIME 08/22/23 08/22/23 release 24 hr furosemide 40 mg tablet (Lasix) 40 mg PO DAILY 08/22/23 08/22/23 Mental Status Exam Mental Status Exam Patient Appearance: Well Grooomed and Appropriate Patient Orientation: Person and Situation Level of Consciousness: Awake and Appropriate Patient Behavior: Guarded and Passive Mood Description: Calm Affect Description: Constricted Patient Cognition Impaired: Yes Ability to Follow Directions: Good Speech Pattern: Clear Hallucinations: None Delusions: Not Present Thought Process: Distracted Thought Content: positive for Circumstantial Judgement: Fair Data Data Completed and Pending Completed studies during hospitalization [Text1]: 09/02/23 09/05/23 07:51 11:28 Urine Color Yellow Urine Appearance Clear Urine pH 5.5 Ur Specific [place] 1.010 Urine Protein Negative Urine Glucose (UA) Negative Urine Ketones Negative Urine Blood Negative Urine Nitrite Negative Ur Leukocyte Esterase Trace H Urine RBC 0-2 Urine WBC 0-5 Ur Squamous Epith Cells 0-2 Urine Bacteria None Seen Hyaline Casts 0-2 Valproic Acid 49.7 L Imaging Diagnostic Imaging Impressions Hip/Pelvis X-Ray 09/05/23 04:48 IMPRESSION: Mild degenerative changes. No fracture or dislocation. Cervical Spine CT 09/05/23 05:00 IMPRESSION: 1. No acute intracranial process seen. 2. Mild cerebral volume loss with chronic small vessel ischemic changes. 3. There is no acute cervical spine fracture or malalignment. There are degenerative disc changes and facet joint arthropathy throughout the cervical spine with multilevel mild spinal canal and neuroforaminal narrowing. Head CT 09/05/23 05:00 IMPRESSION: 1. No acute intracranial process seen. 2. Mild cerebral volume loss with chronic small vessel ischemic changes. 3. There is no acute cervical spine fracture or malalignment. There are degenerative disc changes and facet joint arthropathy throughout the cervical spine with multilevel mild spinal canal and neuroforaminal narrowing. DS: Summary Hospital Course Hospital Course: The patient is a 73-year-old female with a past history of bipolar disorder with limited support in the community. During the holiday season, the patient had several losses and stressors. Her only granddaughter committed suicide on and she had been having interpersonal problems with her family. She complained of suicidal ideation and her family called 911 and rushed to the emergency room of another hospital. She was assessed by crisis and transferring to this facility for psychiatric stabilization. Please see the HPI of the admission note for further details. On admission we review her Depakote levels and was subtherapeutic. The patient reported that she had been on Depakote for several years and we start titrating up to a 1000 mg p.o. q.h.s. with a therapeutic level. Also since the patient complained of depressive symptoms and poor sleep we decided to start on Remeron 7.5 mg p.o. q.h.s. with for improvement. The patient progressively improved she was able to participate in groups and she was able to contract for safety. While she was in the hospital the patient fell accidentally and had a superficially urine her face. She was seen by Medicine and no new interventions were needed. Since the patient did not have safety concerns discharge planning was discussed. Time spent discussing smoking cessation with patient: 3 to 10 minutes Status at Discharge Functional status at discharge: independent ambulation Time Spent with Patient Time attestation: Total time managing care of this patient today __30__ minutes. Time spent: Less than 30 minutes Discharge Plan Discharge Anticipated Discharge Date/Time: 09/06/23 10:00 Patient Disposition: Home, Self-Care Discharge Diagnosis: Bipolar disorder type 1 most recent episode depressed Referrals: Elvira - [employer] [Other] - [address] Christie Walter - Psychiatrist [Other] - 09/09/23 2:40 pm (Appointment: 09/09/2023 @ 2:40pm ) Mental Health Therapist [Other] - 1 Week (Referral for mental health Therapist was made through [facility]. ) Niurka Villagran MD [Primary Care Provider] - 09/10/23 2:45 pm (Fax#: [phone]) Discharge Medications: New acetaminophen 325 mg Tablet 650 mg PO Q6H PRN (Reason: Headache/Pain Mild Scale (1-3)) Qty: 60 0RF trazodone 50 mg Tablet 50 mg PO BEDTIME PRN (Reason: Insomnia) 30 Days Qty: 60 0RF divalproex 125 mg Capsule, Delayed Rel Sprinkle 1,000 mg PO BEDTIME 30 Days Qty: 240 0RF mirtazapine 7.5 mg Tablet 7.5 mg PO BEDTIME 30 Days Qty: 30 0RF Systane Gel 0.4-0.3 % Drops,Gel 2 drp ophthalmic (eye) BID PRN (Reason: Dry Eyes) 30 Days Qty: 5 0RF Continued furosemide 40 mg Tablet 40 mg PO DAILY 30 Days Qty: 30 0RF atorvastatin 40 mg Tablet 40 mg PO DAILY 30 Days Qty: 30 0RF Discontinued divalproex 250 mg Tablet Extended Release 24 Hr 750 mg PO BEDTIME Discharge Orders: Discharge Order (Routine); Ordered 09/06/23 Ordered By: Martin Wall Diet: Advance to usual diet Activity on Discharge: As tolerated Stand Alone Forms: Patient Portal Discharge page Care Plan Goals: Care plan goals achieved in this admission Health Concerns: Continue treatment with primary care physician Plan of Treatment: Continue outpatient services with psychiatrist. Assessment: The patient is a elderly female with a past history of bipolar disorder who was admitted into the hospital for suicidal ideation in the context of several losses. His only granddaughter committed suicide on since since then she had been feeling more depressed and dysphoric. We checked on admission her Depakote levels did was subtherapeutic we corrected up to 1000 mg p.o. q.h.s. and started Remeron with for improvement. Ready to be discharged no safety concerns.
== END 2023-09-06 11:00 | disposition home or self-care (01) | DRG 885 ==
PROVIDERS: Social Worker; Admitting Provider Psychiatry & Neurology Psychiatry; PCP Internal Medicine; Visit Provider Psychiatry & Neurology Psychiatry
DX: F31.30 Bipolar disorder, current episode depressed, mild or moderate severity, unspecified (principal); R45.851 Suicidal ideations; W19.XXXA Unspecified fall, initial encounter; S01.81XA Laceration without foreign body of other part of head, initial encounter; R60.0 Localized edema; E78.5 Hyperlipidemia, unspecified; Z91.410 Personal history of adult physical and sexual abuse; Z79.899 Other long term (current) drug therapy
CPT/HCPCS: 36415; 70450; 72125; 73521; 80053; 80061; 80164; 81001; 82607; 82746; 83036; 84443; 93005; 94799

== ENCOUNTER → 2023-08-22 16:56 | Outpatient (BNV) | payer MEDICARE, SELFPAY | PROVIDERS: Admitting Provider Psychiatry & Neurology Psychiatry; PCP Internal Medicine; Visit Provider Student in an Organized Health Care Education/Training Program | DX: Z02.2 Encounter for examination for admission to residential institution (principal) | CPT/HCPCS: 99429; 99499 ==

== ENCOUNTER → 2023-08-22 16:56 | Outpatient (BNV) | payer MEDICARE, SELFPAY | PROVIDERS: Admitting Provider Psychiatry & Neurology Psychiatry; PCP Internal Medicine; Visit Provider Psychiatry & Neurology Psychiatry | DX: F31.4 Bipolar disorder, current episode depressed, severe, without psychotic features (principal); F39 Unspecified mood [affective] disorder | CPT/HCPCS: 90792; 99231; 99232; 99238 ==